=== PATIENT | male | born 1945 | race African-American/Black ===

== ENCOUNTER 2019-10-06 14:17 | Inpatient (IN) | payer MEDICARE, OTHER ==
[~2019-10-06] VITALS: Ht 172.7 cm; Wt 63.1 kg
[2019-10-06] MEDS ORDERED: SODIUM CHLORIDE 0.9% 1,000 ML IVB ONE (17:12)
[2019-10-06 17:32] LABS: Basophils # (auto) 0.1 10 ^3/uL (0-0.2); Basophils % (auto) 0.7 % (0.0-2.0); Eosinophils # (auto) 0.1 10 ^3/uL (0-0.8); Eosinophils % (auto) 1.7 % (0.0-7.0); Hematocrit 41.8 % (41.0-53.0); Lymphocytes # (auto) 0.9 10 ^3/uL (0.4-5.4); Lymphocytes % (auto) 11.1 % (10.0-50.0); Mean Corpuscular Hemoglobin 32.4 pg (28.0-32.0); Mean Corpuscular Hgb Conc. 33.5 g/dL (32.0-36.0); Mean Corpuscular Volume 96.7 fL (80.0-100.0); Monocytes # (auto) 0.6 10 ^3/uL (0-1.3); Monocytes % (auto) 7.6 % (0.0-12.0); Neutrophils # (auto) 6.6 10 ^3/uL (1.6-8.6); Neutrophils % (auto) 78.9 % (37.0-80.0); Nucleated Red Blood Cells % 0.1 %; Platelet Count (auto) 175 10^3/uL (140-450); Red Blood Cells 4.32 10^6/uL (4.5-5.90); Red Cell Distribution Width 14.2 % (11.8-14.3); White Blood Cell 8.3 10^3/uL (4.4-10.8)
[2019-10-06 18:40] LABS: INR 1.07 (0.9-1.15); Partial Thromboplastin Time 24.8 sec (23.64-32.05)
[2019-10-06 19:39] LABS: Calcium 9.1 mg/dL (8.5-10.1); Magnesium 2.1 mg/dL (1.6-2.6); Potassium 3.7 mmol/L (3.5-5.1)
[2019-10-06 19:44] LABS: BUN/Creatinine Ratio 13.4; Bilirubin, Total 0.4 mg/dL (0.2-1.0); Total Protein 8.3 g/dL (6.4-8.2)
[2019-10-06] MEDS ORDERED: MORPHINE SULF INJ 2 MG/ML SYRINGE 1ML IV PRN (21:00)
[2019-10-06] MEDS ORDERED: NITROGLYCERIN 0.4 MG SL TAB SL PRN (21:00)
[2019-10-06] MEDS ORDERED: TEMAZEPAM 15 MG CAP PO PRN (21:00)
[2019-10-06] MEDS ORDERED: ONDANSETRON HCL 4 MG/2 ML VIAL IV PRN (21:00)
[2019-10-06] MEDS ORDERED: ACETAMINOPHEN 325 MG TAB PO PRN (21:00)
[2019-10-06] MEDS ORDERED: ASPirin-EC 81 mg tab PO ONE (21:15)
[2019-10-06] MEDS: ATORVASTATIN 20 MG TAB PO SCH (22:20)
[2019-10-06] MEDS: FAMOTIDINE 20 MG TAB PO SCH (22:21)
[2019-10-06] MEDS: cloNIDine HCL 0.1 MG TAB PO PRN (22:24)
--- NOTE | 2019-10-06 23:17 | NUR ---
Telemetry admit from ER JAYLEN COOK admitted to Telemetry unit. Patient oriented to GIO MANN RN primary RN, unit, room, bed, and unit policies regarding patient care and visiting hours. Patient now on continuous telemetry monitoring, tele box #46 and telemetry reading on arrival to unit is 63. Patient placed on bedside oxygen 2L via nasal cannula, weighed by bedscale and encouraged to call if they need something. All questions and concerns addressed, patient verbalized understanding. Will continue to monitor.
[2019-10-06 23:30] VITALS: BP 157/85
--- NOTE | 2019-10-07 01:20 | NUR ---
Patient's Admission Obtained more patient history from patient's daughter Jeanette, after password verification.
[2019-10-07] MEDS ORDERED: TRAM50TA2 PO (02:50)
[2019-10-07] MEDS ORDERED: AMLO10TA13 PO (02:50)
[2019-10-07] MEDS ORDERED: DIPH25CA6 PO (02:50)
[2019-10-07] MEDS ORDERED: ATEN50TA PO (02:50)
[2019-10-07] MEDS ORDERED: CLON0.1T PO (02:50)
[2019-10-07] MEDS ORDERED: ATOR80TA PO (02:50)
[2019-10-07] MEDS ORDERED: ASPI-543 PO (02:50)
[2019-10-07] MEDS ORDERED: METF-370 PO (02:50)
[2019-10-07] MEDS: cloNIDine HCL 0.1 MG TAB PO PRN (04:25)
[2019-10-07 05:00] VITALS: BP 170/89
[2019-10-07 07:16] LABS: Basophils # (auto) 0 10 ^3/uL (0-0.2); Basophils % (auto) 0.5 % (0.0-2.0); Eosinophils # (auto) 0.2 10 ^3/uL (0-0.8); Eosinophils % (auto) 2.2 % (0.0-7.0); Hematocrit 38.5 % (41.0-53.0); Hemoglobin 12.9 g/dL (13.5-17.5); Lymphocytes % (auto) 10.7 % (10.0-50.0); Mean Corpuscular Hemoglobin 32.4 pg (28.0-32.0); Mean Corpuscular Hgb Conc. 33.6 g/dL (32.0-36.0); Mean Corpuscular Volume 96.5 fL (80.0-100.0); Monocytes # (auto) 0.6 10 ^3/uL (0-1.3); Monocytes % (auto) 6.9 % (0.0-12.0); Neutrophils # (auto) 7.1 10 ^3/uL (1.6-8.6); Neutrophils % (auto) 79.7 % (37.0-80.0); Platelet Count (auto) 169 10^3/uL (140-450); Red Blood Cells 3.99 10^6/uL (4.5-5.90); White Blood Cell 8.9 10^3/uL (4.4-10.8)
[2019-10-07 07:43] LABS: BUN/Creatinine Ratio 10.5; Calcium 8.8 mg/dL (8.5-10.1); Potassium 4.1 mmol/L (3.5-5.1)
[2019-10-07 09:00] VITALS: BP 140/85
[2019-10-07] MEDS: FAMOTIDINE 20 MG TAB PO SCH ×2 (09:13→23:34)
[2019-10-07] MEDS: ENOXAPARIN SOD 40 MG/0.4 ML SYRINGE SC SCH (09:14)
[2019-10-07] MEDS: ASPirin 81 mg TAB PO SCH (09:14)
--- NOTE | 2019-10-07 10:00 | NUR ---
WOUND CARE NOTE: IN TO SEE PATIENT AT THIS TIME PER WOUND CARE CONSULT REQUEST. PATIENT WAS NOTED UPON ADMIT TO HAVE SKIN INTEGRITY ISSUES. WOUND PHOTOS TAKEN UPON ADMIT BY BEDSIDE NURSE FOR REFERENCE. PATIENT ADMITTED TO [facility] WITH DIAGNOSIS OF ELEVATED TROPONIN LEVELS, R/O NSTEMI. CURRENT BRANDON SCORE IS 14. PATIENT HAS HISTORY WITH CVA. HE IS MAX ASSIST FOR HIS ADL'S. ORDERED SPECIALTY AIR MATTRESS. PATIENT TO BE PLACED, PENDING DELIVERY BY DAVID QUIGLEY. PATIENT IS NOTED TO HAVE MULTIPLE PINK COLLAGEN SCARS TO SACRUM, AND LEFT FOOT/ANKLE, AND SCABBED ABRASION TO LEFT DORSAL HAND. ALL LEFT OPEN TO AIR. PATIENT WOULD BENEFIT FROM: FREQUENT TURN SCHEDULE Q 2 HOURS, PRN CONDITION PERMITS WITH PRESSURE REDISTRIBUTION USING PILLOWS/WEDGES, BID/PRN APPLICATION MOISTURE BARRIER CREAM, OPTIFOAM GENTLE SACRAL DRESSING, SPECIALTY AIR MATTRESS, SKIN/WOUND CARE PLAN, CONTINUED MONITORING BY WOUND CARE TEAM. Addendum: 10/07/19 at 1637 by Mayra Kirkland RN Amended: Links added.
--- NOTE | 2019-10-07 11:28 | NUR ---
SWALLOW EVALUATED. PATIENT HAS NO TEETH OR DENTURES. ABLE TO TOLERATE PUREE DIET TEXTURE WITH THIN LIQUIDS WITH NO OVERT SIGNS OR SYMPTOMS OF ASPIRATION. NURSING NOTIFIED.
[2019-10-07 13:00] VITALS: BP 162/67
[2019-10-07] MEDS ORDERED: LISINOPRIL 20 MG TAB PO ONE (13:15)
[2019-10-07] MEDS ORDERED: CLOPIDOGREL BISULFATE 75 MG TAB PO ONE (13:15)
--- NOTE | 2019-10-07 14:43 | NUR ---
Nutrition Assessment Notes Please refer to link for full assessment notes. Est Energy needs: 8235-5336 kcals (23-25 kcal/kgBW) Est Protein needs: 60-66 gms/day (1.0-1.1 gm/kgBW) Will continue to monitor and reassess prn. Addendum: 10/07/19 at [address] Amended: Links added.
[2019-10-07 15:16] LABS: Urine Bacteria NONE SEEN /hpf (None Seen); Urine Blood TRACE /uL (Negative); Urine Specific Gravity 1.011 (1.001-1.035); Urine WBC 1 /hpf (0 - 3)
[2019-10-07 17:00] VITALS: BP 137/102
--- NOTE | 2019-10-07 20:48 | NUR ---
PT TRANSFERRED TO SPECIALTY BED.
[2019-10-07 22:47] LABS: Folate (Folic Acid) 19.84 ng/mL (5.38-24)
[2019-10-07 23:12] VITALS: BP 145/73
[2019-10-07] MEDS: ATORVASTATIN 20 MG TAB PO SCH (23:32)
[2019-10-07] MEDS: METOPROLOL TARTRATE 50 MG TAB PO SCH (23:34)
[2019-10-08 05:14] VITALS: BP 162/83
[2019-10-08] MEDS: cloNIDine HCL 0.1 MG TAB PO PRN ×3 (07:55→20:53)
[2019-10-08 09:00] VITALS: BP 171/97
--- NOTE | 2019-10-08 09:15 | NUR ---
pt seen by Dr. Acevedo, he spoke with daughter Jeanette and updated on the plan of care.
[2019-10-08] MEDS: METOPROLOL TARTRATE 50 MG TAB PO SCH ×2 (09:57→20:52)
[2019-10-08] MEDS: FAMOTIDINE 20 MG TAB PO SCH ×2 (09:57→20:52)
[2019-10-08] MEDS: CLOPIDOGREL BISULFATE 75 MG TAB PO SCH (09:57)
[2019-10-08] MEDS: ASPirin 81 mg TAB PO SCH (09:58)
[2019-10-08] MEDS: LISINOPRIL 20 MG TAB PO SCH (09:58)
[2019-10-08] MEDS: ENOXAPARIN SOD 40 MG/0.4 ML SYRINGE SC SCH (09:59)
[2019-10-08 12:58] VITALS: BP 160/94
[2019-10-08 14:20] VITALS: BP 122/76
--- NOTE | 2019-10-08 16:42 | NUR ---
spoke with Dr. Ryan regarding pending EEG, he said pt can get it as out patient at [facility].
[2019-10-08 17:15] VITALS: BP 162/77
[2019-10-08] MEDS: ATORVASTATIN 20 MG TAB PO SCH (20:50)
[2019-10-08 22:00] VITALS: BP 163/92
[2019-10-09 05:00] VITALS: BP 169/80
--- NOTE | 2019-10-09 07:33 | NUR ---
[facility]CE[facility]. AWAKE AND ALERT. UNDERSTANDS SIMPLE SENTENCES. DENIES PAIN, NO SOB OR S/S OF DISTRESS. BED IN LOCKED AND LOW POSITION. CALL LIGHT AND PHONE WITHIN REACH. WILL CONTINUE TO MONITOR Q1HR AND PRN.
[2019-10-09 09:00] VITALS: BP 135/95
[2019-10-09] MEDS: ASPirin 81 mg TAB PO SCH (09:47)
[2019-10-09] MEDS: LISINOPRIL 20 MG TAB PO SCH (09:49)
[2019-10-09] MEDS: FAMOTIDINE 20 MG TAB PO SCH (09:49)
[2019-10-09] MEDS: METOPROLOL TARTRATE 50 MG TAB PO SCH (09:50)
[2019-10-09] MEDS: CLOPIDOGREL BISULFATE 75 MG TAB PO SCH (09:50)
[2019-10-09] MEDS: ENOXAPARIN SOD 40 MG/0.4 ML SYRINGE SC SCH (09:51)
[2019-10-09 13:00] VITALS: BP 147/90
[2019-10-09 15:45] VITALS: BP 135/95
--- NOTE | 2019-10-09 16:00 | NUR ---
CARPET CLEANING TECHNICIAN WEEKEND Received a page from ANDREINA Yen regarding home health service. Per ANDREINA Yen patient family stated [facility] and [facility] will contact them to continue service for patient.
== END 2019-10-09 17:30 | disposition home health service (06) | DRG 280 ==
LOC: EDBD 14:17 → ER 14:17 → TELE-CENTR 14:18
PROVIDERS: ADMIT Nurse Practitioner; ATTEND Family Medicine
DX: I21.4 Non-ST elevation (NSTEMI) myocardial infarction (principal); G93.41 Metabolic encephalopathy; I69.354 Hemiplegia and hemiparesis following cerebral infarction affecting left non-dominant side; E11.9 Type 2 diabetes mellitus without complications; E78.00 Pure hypercholesterolemia, unspecified; E78.5 Hyperlipidemia, unspecified; G89.29 Other chronic pain; I16.0 Hypertensive urgency; I10 Essential (primary) hypertension; M54.5 Low back pain; S40.022A Contusion of left upper arm, initial encounter; I25.10 Atherosclerotic heart disease of native coronary artery without angina pectoris; F17.200 Nicotine dependence, unspecified, uncomplicated; I25.2 Old myocardial infarction; Z79.02 Long term (current) use of antithrombotics/antiplatelets; Z74.01 Bed confinement status; Z79.82 Long term (current) use of aspirin; Z79.84 Long term (current) use of oral hypoglycemic drugs; Z79.899 Other long term (current) drug therapy; Z82.49 Family history of ischemic heart disease and other diseases of the circulatory system; Z83.3 Family history of diabetes mellitus; Z85.46 Personal history of malignant neoplasm of prostate; X58.XXXA Exposure to other specified factors, initial encounter; Y93.89 Activity, other specified; Y92.89 Other specified places as the place of occurrence of the external cause; Y99.8 Other external cause status
CPT/HCPCS: 36415; 70450; 70551; 71045; 80048; 80053; 81001; 82607; 82746; 83735; 84443; 84484; 85025; 85610; 85730; 87086; 92610; 93005; 93306; 93886; 97163; 97530; A4565; G0378; J2405

== ENCOUNTER 2019-10-24 16:55 | Inpatient (IN) | payer MEDICARE, OTHER ==
[~2019-10-24] VITALS: Ht 170.2 cm; Wt 48.1 kg
[~2019-10-24 16:55] MED LIST: AMLO10TA13 PO; ASPI-404 PO; ATEN50TA PO; ATOR80TA PO; CLON0.1T PO; DIPH25CA6 PO; METF-370 PO; TRAM50TA2 PO
[2019-10-24] MEDS ORDERED: SODIUM CHLORIDE 0.9% 1,000 ML IVB ONE (19:47)
[2019-10-24] MEDS ORDERED: ONDANSETRON HCL 4 MG/2 ML VIAL IV ONE (20:00)
[2019-10-24 21:07] LABS: Basophils # (auto) 0.1 10 ^3/uL (0-0.2); Basophils % (auto) 0.8 % (0.0-2.0); Eosinophils # (auto) 0.2 10 ^3/uL (0-0.8); Eosinophils % (auto) 1.1 % (0.0-7.0); Hematocrit 41.2 % (41.0-53.0); Hemoglobin 12.9 g/dL (13.5-17.5); Lymphocytes # (auto) 2.3 10 ^3/uL (0.4-5.4); Lymphocytes % (auto) 13.5 % (10.0-50.0); Mean Corpuscular Hemoglobin 31.6 pg (28.0-32.0); Mean Corpuscular Hgb Conc. 31.3 g/dL (32.0-36.0); Monocytes # (auto) 1.7 10 ^3/uL (0-1.3); Monocytes % (auto) 10.1 % (0.0-12.0); Neutrophils # (auto) 12.4 10 ^3/uL (1.6-8.6); Neutrophils % (auto) 74.5 % (37.0-80.0); Nucleated Red Blood Cells % 0.2 %; Platelet Count (auto) 287 10^3/uL (140-450); Red Blood Cells 4.08 10^6/uL (4.5-5.90); Red Cell Distribution Width 14.4 % (11.8-14.3); White Blood Cell 16.7 10^3/uL (4.4-10.8)
[2019-10-24 21:26] LABS: Albumin 2.8 g/dL (3.4-5.0); Potassium 5.5 mmol/L (3.5-5.1)
[2019-10-24 21:28] LABS: BUN/Creatinine Ratio 15.1
[2019-10-24 21:33] LABS: Bilirubin, Total 0.5 mg/dL (0.2-1.0); Total Protein 7.7 g/dL (6.4-8.2)
[2019-10-24] MEDS ORDERED: SODIUM CHLORIDE 0.9% 1,000 ML IV SCH (21:36)
[2019-10-24] MEDS ORDERED: NOREPINEPHRINE 8 MG/250ML KIT 250 ML IV ONE (21:44)
[2019-10-24] MEDS ORDERED: ALUM & MAG HYDROX-SIMETH LIQ(MAALOX) 30 ML PO PRN (21:45)
[2019-10-24] MEDS ORDERED: DEXTROSE (50%) 50ML SYRG IV PRN (21:45)
[2019-10-24] MEDS ORDERED: ONDANSETRON HCL 4 MG/2 ML VIAL IV PRN (21:45)
[2019-10-24] MEDS ORDERED: DOCUSATE SOD 100 MG CAP PO PRN (21:45)
[2019-10-24 21:46] LABS: INR 1.21 (0.9-1.15); Partial Thromboplastin Time 27.5 sec (23.64-32.05)
[2019-10-24] MEDS: NOREPINEPHRINE 8 MG/250ML KIT 250 ML IV SCH (22:08)
[2019-10-24] MEDS ORDERED: ETOMIDATE (2MG/ML) 20ML VIAL IV ONE (22:15)
[2019-10-24] MEDS ORDERED: SUCCINYLCHOLINE CHLORIDE 20 MG/ML 10ML VIAL IV ONE (22:15)
[2019-10-24] MEDS ORDERED: SODIUM BICARBONATE 50ML VIAL 100 ML in SOD CHL 0.45% 1,000 ML IV SCH (22:30)
[2019-10-24] MEDS ORDERED: SODIUM BICARBONATE 8.4% INJ 50ML SYRINGE ONE ×2 (22:31→23:27)
[2019-10-24] MEDS ORDERED: PROPOFOL 100 ML IV ONE (22:48)
[2019-10-24] MEDS: PROPOFOL 100 ML IV SCH (23:00)
[2019-10-25] VITALS (22 sets, daily range): BP systolic 88–145; BP diastolic 35–89
[2019-10-25] MEDS: InsuLIN REG 1unit/0.01ml Soln (100units/ml) SC SCH ×6 (02:08→20:13)
[2019-10-25] MEDS: metroNIDAZOLE 500MG/100ML 100 ML IV SCH ×3 (04:05→12:06)
[2019-10-25] MEDS: NOREPINEPHRINE 8 MG/250ML KIT 250 ML IV SCH (04:29)
[2019-10-25] MEDS: ACCU-CHEK COMFORT CURVE STRIP VI SCH ×6 (04:36→20:12)
[2019-10-25] MEDS ORDERED: IPRATROPIUM BROM 0.5 MG/2.5ML INH SOL NEB PRN (05:30)
[2019-10-25] MEDS ORDERED: ALBUTEROL SULF 2.5 MG/0.5ML(0.5%) NEB SOLN NEB PRN (05:30)
[2019-10-25 07:19] LABS: Hematocrit 37.2 % (41.0-53.0); Hemoglobin 11.8 g/dL (13.5-17.5); Mean Corpuscular Hemoglobin 31.8 pg (28.0-32.0); Mean Corpuscular Hgb Conc. 31.6 g/dL (32.0-36.0); Mean Corpuscular Volume 100.4 fL (80.0-100.0); Platelet Count (auto) 221 10^3/uL (140-450); Red Blood Cells 3.71 10^6/uL (4.5-5.90); Red Cell Distribution Width 14.2 % (11.8-14.3); White Blood Cell 13.4 10^3/uL (4.4-10.8)
[2019-10-25 07:33] LABS: Basophils % (manual) 0 (0.0-2.0); Blast Cells 0; Promyelocytes % 0; Reactive Lymphocytes 0
[2019-10-25 07:34] LABS: Calcium 8.7 mg/dL (8.5-10.1)
[2019-10-25 07:38] LABS: BUN/Creatinine Ratio 16.9
[2019-10-25 07:56] LABS: Potassium 5.7 mmol/L (3.5-5.1)
[2019-10-25 08:01] LABS: Band Neutrophils % (manual) 2; Eosinophils % (manual) 1 (0-7); Lymphocytes % (manual) 14 (10.0-50.0); Metamyelocytes % 3; Monocytes % (manual) 5 (0-12); Myelocytes % 1
[2019-10-25] MEDS ORDERED: InsuLIN REG 1unit/0.01ml Soln (100units/ml) IV ONE (08:45)
[2019-10-25] MEDS ORDERED: DEXTROSE (50%) 50ML SYRG IV ONE (08:45)
[2019-10-25] MEDS ORDERED: ALBUTEROL SULF 2.5 MG/0.5ML(0.5%) NEB SOLN NEB ONE (08:45)
[2019-10-25] MEDS ORDERED: SODIUM BICARBONATE 8.4% INJ 50ML SYRINGE IV ONE (08:45)
[2019-10-25] MEDS ORDERED: CALCIUM GLUC 4.65meq/50ml D5AE 50 ML IV ONE (08:45)
[2019-10-25] MEDS ORDERED: SODIUM CHLORIDE 0.9% 500 ML IV ONE (09:00)
[2019-10-25] MEDS ORDERED: ACETAMINOPHEN 650 MG RECT SUPP PR ONE (09:30)
[2019-10-25] MEDS ORDERED: SODIUM ZIRCONIUM CYCL 10 GM PAK PO ONE (09:30)
[2019-10-25] MEDS ORDERED: SODIUM BICARBONATE 50ML VIAL 150 ML in D5W 5% 1,000 ML IV ONE ×2 (09:30→10:15)
[2019-10-25] MEDS ORDERED: FUROSEMIDE 20 MG/2 ML VIAL IV ONE (09:30)
[2019-10-25] MEDS: cefTRIAXone 1GM/50ML D5W 50 ML IV SCH (09:35)
[2019-10-25] MEDS ORDERED: SODIUM BICARBONATE 8.4 % INJ 50ML VIAL IV ONE (10:00)
[2019-10-25 10:34] LABS: Urine Amorphous Crystal FEW /hpf (None Seen); Urine Bacteria FEW /hpf (None Seen); Urine Blood 2+ /uL (Negative); Urine Hyaline Cast MANY /lpf (0 - 2); Urine Mucus FEW (None Seen); Urine Specific Gravity 1.024 (1.001-1.035); Urine WBC 20 /hpf (0 - 3)
[2019-10-25 13:02] LABS: BUN/Creatinine Ratio 16.7; Potassium 4.4 mmol/L (3.5-5.1)
[2019-10-25] MEDS: METOCLOPRAMIDE HCL 5MG/ml INJ 2ml VIAL IV SCH ×2 (14:07→22:52)
[2019-10-25] MEDS: SODIUM ZIRCONIUM CYCL 10 GM PAK PO SCH ×2 (14:07→22:52)
[2019-10-25] MEDS: SODIUM CHLORIDE 0.9% 1,000 ML IV SCH (15:03)
--- NOTE | 2019-10-25 21:45 | NUR ---
RT Transport Note: Patient transported to [facility]ENDING [facility]PER[facility]OR ICU with ANDREINA DE. Patient transported to and from procedure on ventilator with previous ordered settings. Patient on cardiac monitor technician with alarms set and audible, ambu-bag/mask connected to 02 tank. Patient returned to room with no adverse reaction noted. Transport completed without incident.
--- NOTE | 2019-10-25 21:45 | NUR ---
Opening note; Patient brought to lab scientist (ICU Overflow patient) bed 8, patient on IV sedation/ intubated, see IV spread sheet for medications and titrations. Patient brought by [facility] nurse, Vital signs stable at this time, see vital sign documentation for initial vitals, MRSA nasal swab collected and sent. Patient placed on tube bender hand and repositioned in bed, no signs of acute distress noted, continue to monitor.
[2019-10-25] MEDS: PROPOFOL 100 ML IV SCH (22:48)
[2019-10-26] VITALS (106 sets, daily range): BP systolic 73–134; BP diastolic 39–80
--- NOTE | 2019-10-26 | NUR ---
Patient resting comfortably, no acute distress noted, continue to monitor.
[2019-10-26] MEDS: ACCU-CHEK COMFORT CURVE STRIP VI SCH ×5 (00:17→23:51)
[2019-10-26] MEDS: SODIUM CHLORIDE 0.9% 1,000 ML IV SCH ×3 (03:47→16:31)
[2019-10-26] MEDS: InsuLIN REG 1unit/0.01ml Soln (100units/ml) SC SCH ×4 (04:00→18:00)
--- NOTE | 2019-10-26 04:00 | NUR ---
Oral temp of 100.8, Tylenol PO will be given as per PRN order.
[2019-10-26] MEDS: ACETAMINOPHEN 325 MG TAB PO PRN (04:01)
[2019-10-26] MEDS: PROPOFOL 100 ML IV SCH ×2 (04:08→20:26)
[2019-10-26 04:25] LABS: Basophils # (auto) 0 10 ^3/uL (0-0.2); Basophils % (auto) 0.4 % (0.0-2.0); Eosinophils # (auto) 0.1 10 ^3/uL (0-0.8); Eosinophils % (auto) 0.6 % (0.0-7.0); Hemoglobin 9.2 g/dL (13.5-17.5); Lymphocytes # (auto) 0.6 10 ^3/uL (0.4-5.4); Lymphocytes % (auto) 4.8 % (10.0-50.0); Mean Corpuscular Hemoglobin 31.3 pg (28.0-32.0); Mean Corpuscular Hgb Conc. 32.7 g/dL (32.0-36.0); Mean Corpuscular Volume 95.9 fL (80.0-100.0); Monocytes # (auto) 0.9 10 ^3/uL (0-1.3); Monocytes % (auto) 6.8 % (0.0-12.0); Neutrophils # (auto) 11.3 10 ^3/uL (1.6-8.6); Neutrophils % (auto) 87.4 % (37.0-80.0); Nucleated Red Blood Cells % 0.3 %; Platelet Count (auto) 156 10^3/uL (140-450); Red Blood Cells 2.92 10^6/uL (4.5-5.90)
[2019-10-26 04:36] LABS: Potassium 4.3 mmol/L (3.5-5.1)
[2019-10-26 04:52] LABS: Albumin 1.8 g/dL (3.4-5.0); Bilirubin, Total 0.4 mg/dL (0.2-1.0); Calcium 7.6 mg/dL (8.5-10.1); Total Protein 5.1 g/dL (6.4-8.2)
--- NOTE | 2019-10-26 04:58 | NUR ---
Temp re-check: 99.5 oral temp
[2019-10-26] MEDS: METOCLOPRAMIDE HCL 5MG/ml INJ 2ml VIAL IV SCH ×3 (05:39→23:47)
[2019-10-26] MEDS: SODIUM ZIRCONIUM CYCL 10 GM PAK PO SCH (05:39)
--- NOTE | 2019-10-26 06:16 | NUR ---
Rhythm Change; Patient heart rated elevated, 130-140s, EKG performed @ 0616, Velez BAND MACHINE OPERATOR paged to notify and await new orders. Patient BP 96/45, O2 sat 100%.
--- NOTE | 2019-10-26 06:27 | NUR ---
A-FIB W/ RVR; Racquel Velez paged 2nd time stat, EKG performed, HR 130s, BP 96/45, 100% O2 sat, resp 18, awaiting new orders at this time.
--- NOTE | 2019-10-26 06:44 | NUR ---
SHANKAR Velez called back; To give 0.125 Digoxin IV push, if patient does not convert to wait 20 min and repeat, One time order. Order repeated back and confirmed.
[2019-10-26] MEDS ORDERED: DIGOXIN (250MCG/ML) 2 ML AMPULE ONE (06:50)
--- NOTE | 2019-10-26 06:58 | NUR ---
Dose of digoxin given as ordered, temporary conversion of rhythm however, patient went back into A-fib w/ RVR HR 130-140, EKG strip printed and placed in chart, Second dose of digoxin to be repeated per order by SHANKAR Velez.
--- NOTE | 2019-10-26 07:00 | NUR ---
Closing Note; Report given to ANDREINA Anderson, Care endorsed.
--- NOTE | 2019-10-26 07:23 | NUR ---
Respiratory note: RECEIVED PATIENT ON V6 V200 VENT ORALLY INTUBATED WITH AN 8.0 ETT SECURED VIA CLEO AT THE 26CM MARKING AT THE LIP, AND MECHANICALLY VENTILATED WITH THE CHARTED SETTINGS. SPO2 100%, LUNG SOUNDS CLEAR/DIM T/O, NO SECRETIONS WHEN SUCTIONED. SKIN IS WARM/DRY TO THE TOUCH AND IS INTACT NEAR CLEO SITE. PITTING EDEMA NOTED IN BILATERAL UPPER EXTREMITIES. THERE IS A NGT IN THE LEFT NARE AND SECURED TO THE NOSE, A TRIPLE LUMEN CENTRAL LINE IS PLACED IN THE RIGHT IJ. PATIENT IS UNRESPONSIVE TO BOTH VERBAL/TACTILE STIMULI AND IS SEDATED ON A PROPOFOL DRIP. HE IS RESTING COMFORTABLY AND TOLERATING VENT WELL, NO CHANGES MADE. VENT PLUGGED INTO RED OUTLET AND ALL ALARMS ARE SET AND AUDIBLE. WILL CONTINUE TO ASSESS PATIENT WELL VENTILATOR FUNCTION. PRN MED-NEB NOT INDICATED.
--- NOTE | 2019-10-26 07:30 | NUR ---
received pt from noc rn. remains sedated/intubated. vent settings ac/ rate 18, tv 500, foi2 60%, peep5. afib with rvr 130.s. perrla will cont to monitor
--- NOTE | 2019-10-26 07:45 | NUR ---
HR CHANGE FROM 130'S TO 100-1220. REMAINS IN AFIB
[2019-10-26] MEDS ORDERED: DIGOXIN (250MCG/ML) 2 ML AMPULE IV ONE (08:15)
--- NOTE | 2019-10-26 08:30 | NUR ---
SPOKE WITH Dian LAINEZ STRAIGHT PIN MAKING MACHINE OPERATOR FOR ORDERS REGARDING PT RATE/RHYTHM. NEW ORDERS RECEIVED.
[2019-10-26] MEDS: NOREPINEPHRINE 8 MG/250ML KIT 250 ML IV SCH (09:12)
--- NOTE | 2019-10-26 09:30 | NUR ---
FAMILYZ- DAUGHTER HERMAN CALLED REGARDING PTS STATUS. DAUGHTER HAD POA AND ONLY WANTS (NAVDEEP) AND HERSELF, THE DAUGHTER TO BE GIVEN INFORMATION ON PT STATUS.
[2019-10-26] MEDS: cefTRIAXone 1GM/50ML D5W 50 ML IV SCH (10:00)
[2019-10-26] MEDS ORDERED: ENOXAPARIN SOD 60 MG/0.6 ML SYRINGE SC SCH (10:00)
--- NOTE | 2019-10-26 10:45 | NUR ---
Respiratory note: FIO2 DECREASED TO 30%.
--- NOTE | 2019-10-26 10:57 | NUR ---
DR ARAUZ AND DR CARTER AT BEDSIDE. NO NEW ORDERS AT THIS TIME. WILL CONT TO WATCH PT STATUS
[2019-10-26] MEDS ORDERED: DEXTROSE (50%) 50ML SYRG IV PRN (12:15)
--- NOTE | 2019-10-26 12:15 | NUR ---
SHANKAR LAINEZ AT BEDSIDE SHE IS AWARE OF ELEVATED TROP, RECEIVED ORDER TO START MILAGROS AND TITRATE OFF LEVOPHED
[2019-10-26] MEDS: PHENYLEPHRINE IV 250 ML IV SCH ×3 (12:20→23:45)
[2019-10-26] MEDS: Glucerna 1.2 Cal 1Liter BOTTLE GT SCH (14:44)
[2019-10-26] MEDS: ALBUMIN 25% 100 ML IV SCH ×2 (15:00→20:24)
--- NOTE | 2019-10-26 15:30 | NUR ---
SHIFT REPORT GIVEN TO ONCOMING RN
--- NOTE | 2019-10-26 16:00 | NUR ---
WOUND CARE NOTE: IN TO SEE PATIENT AT THIS TIME PER WOUND CARE CONSULT REQUEST. PATIENT ADMITTED TO [facility] WITH DIAGNOSIS OF ILEUS, SPASTIC HEMIPLEGIA. PATIENT INTUBATED, SEDATED, CURRENT BRANDON SCORE ASSESSED AT 10. PATIENT NOTED UPON ADMIT TO HAVE WOUND TO RIGHT HIP. WOUND PHOTO TAKEN AT THAT TIME BY BEDSIDE NURSE FOR REFERENCE. PATIENT ALSO HAS MULTIPLE SCARS/SCABS/ECCHYMOSIS TO VARIOUS AREAS, WOUND PHOTOS TAKEN AT THIS TIME FOR REFERENCE OF THESE AREAS. PATIENT RESTING ON SPECIALTY AIR MATTRESS. PATIENT NOTED TO HAVE UNSTAGEABLE PRESSURE INJURY TO THE RIGHT HIP. WOUND IS COVERED WITH LIGHT RED SCAR AND SOFT BROWN ESCHAR. WOUND DOES HAVE LIGHT SEROUS DRAINAGE. APPLIED THERAHONEY GAUZE. COVERED WITH OPTIFOAM GENTLE DRESSING. MEDIAL SACRUM IS COVERED WITH PINK COLLAGEN SCAR WITH RAISED HARD SCAR AT COCCYX. COVERED WITH OPTIFOAM GENTLE SACRAL DRESSING. LEFT DORSAL FOOT HAS INTACT PINK SCAR, LEFT OPEN TO AIR. RIGHT FOREARM HAS THREE SCABBED ABRASIONS NOTED. NO OPEN OR DRAINING AREAS NOTED. LEFT OPEN TO AIR. LEFT ARM HAS MULTIPLE INTACT ECCHYMOSIS, LEFT OPEN TO AIR. NO OTHER SKIN INTEGRITY ISSUES SEEN. RECOMMEND: FREQUENT TURN SCHEDULE Q 2HOURS, PRN CONDITION PERMITS, WITH PRESSURE REDISTRIBUTION USING PILLOWS/WEDGES, BID/PRN APPLICATION WITH MOISTURE BARRIER CREAM, OPTIFOAM GENTLE SACRAL DRESSING PREVENTATIVE, EOD/PRN DRESSING CHANGE TO RIGHT HIP WOUND, SPECIALTY AIR MATTRESS, DIETARY CONSULT, SKIN/WOUND CARE PLAN, CONTINUED MONITORING BY WOUND CARE TEAM. Addendum: 10/26/19 at 6824 by Mayra Kirkland RN Amended: Links added.
--- NOTE | 2019-10-26 17:00 | NUR ---
IV removal RT.AC,LT.AC IV DC'd with sterile technique, catheter fully intact. Pressure dressing applied to site. Patient tolerated procedure well.
--- NOTE | 2019-10-26 17:00 | NUR ---
Special mattress/ Patient bathe/linen change Patient given complete bath. Skin integrity assessed for any changes. Linens changed. Patient transferred to [facility]
[2019-10-26] MEDS: ACETYLCYSTEINE 10 %(100MG/ML) SOL 4ML NEB SCH (18:46)
[2019-10-26] MEDS: IPRATROPIUM BROM 0.5 MG/2.5ML INH SOL NEB SCH (18:46)
[2019-10-26] MEDS: ALBUTEROL SULF 2.5 MG/0.5ML(0.5%) NEB SOLN NEB SCH (18:46)
--- NOTE | 2019-10-26 21:00 | NUR ---
SEDATION VACATION HELD PATIENT WAS RESTLESS SO DIPRIVAN WAS INCREASED AND NOW PATIENT IS BREATHING IN HIGH 20'S.
[2019-10-27] VITALS (89 sets, daily range): BP systolic 74–147; BP diastolic 41–80
[2019-10-27] MEDS: ALBUTEROL SULF 2.5 MG/0.5ML(0.5%) NEB SOLN NEB SCH ×3 (00:21→12:30)
[2019-10-27] MEDS: ACETYLCYSTEINE 10 %(100MG/ML) SOL 4ML NEB SCH ×4 (00:21→18:57)
[2019-10-27] MEDS: IPRATROPIUM BROM 0.5 MG/2.5ML INH SOL NEB SCH ×4 (00:21→18:57)
[2019-10-27] MEDS: PROPOFOL 100 ML IV SCH ×3 (02:02→22:28)
[2019-10-27] MEDS: SODIUM CHLORIDE 0.9% 1,000 ML IV SCH (03:18)
[2019-10-27] MEDS: PHENYLEPHRINE IV 250 ML IV SCH ×2 (03:37→17:40)
[2019-10-27] MEDS: ALBUMIN 25% 100 ML IV SCH (05:09)
[2019-10-27 06:08] LABS: Basophils # (auto) 0 10 ^3/uL (0-0.2); Basophils % (auto) 0.4 % (0.0-2.0); Eosinophils # (auto) 0.5 10 ^3/uL (0-0.8); Hematocrit 23.9 % (41.0-53.0); Lymphocytes # (auto) 0.7 10 ^3/uL (0.4-5.4); Platelet Count (auto) 137 10^3/uL (140-450)
[2019-10-27 06:11] LABS: Eosinophils % (auto) 3.8 % (0.0-7.0); Hemoglobin 7.9 g/dL (13.5-17.5); Lymphocytes % (auto) 5.7 % (10.0-50.0); Mean Corpuscular Hgb Conc. 32.9 g/dL (32.0-36.0); Mean Corpuscular Volume 97.3 fL (80.0-100.0); Monocytes # (auto) 0.7 10 ^3/uL (0-1.3); Monocytes % (auto) 5.4 % (0.0-12.0); Neutrophils # (auto) 10.6 10 ^3/uL (1.6-8.6); Neutrophils % (auto) 84.7 % (37.0-80.0); Nucleated Red Blood Cells % 0.4 %; Red Blood Cells 2.46 10^6/uL (4.5-5.90); White Blood Cell 12.5 10^3/uL (4.4-10.8)
[2019-10-27] MEDS: ACCU-CHEK COMFORT CURVE STRIP VI SCH ×3 (06:21→17:58)
[2019-10-27] MEDS: InsuLIN REG 1unit/0.01ml Soln (100units/ml) SC SCH ×4 (06:22→18:12)
[2019-10-27] MEDS: METOCLOPRAMIDE HCL 5MG/ml INJ 2ml VIAL IV SCH ×3 (06:23→22:28)
[2019-10-27 06:29] LABS: Calcium 7.6 mg/dL (8.5-10.1); Potassium 3.7 mmol/L (3.5-5.1)
[2019-10-27 06:31] LABS: BUN/Creatinine Ratio 19.4
[2019-10-27] MEDS: cefTRIAXone 1GM/50ML D5W 50 ML IV SCH (09:50)
[2019-10-27] MEDS ORDERED: SODIUM CHLORIDE 0.9% 1,000 ML IV SCH (10:00)
[2019-10-27] MEDS: ENOXAPARIN SOD 60 MG/0.6 ML SYRINGE SC SCH (10:00)
--- NOTE | 2019-10-27 10:00 | NUR ---
LOVENOX GIVEN THEN DR. ARAUZ CALLED TO DC IT. UPDATED ON PT CONDITION. NG FEED AND DIPRIVAN STOPPED TO PREP FOR CPAP AND POSS EXTUBATION. .
--- NOTE | 2019-10-27 11:00 | NUR ---
WAKING UP OPENED EYES AND LOOKED AT ME WHEN NAME CALLED.
[2019-10-27] MEDS: DIGOXIN 0.125 MG TAB PO SCH (11:44)
--- NOTE | 2019-10-27 11:54 | NUR ---
PT IS AWAKE, FOLLOWING COMMAND USING HEAD AND HAND GESTURES TO COMMUNICATE DR. ARAUZ NOTIFIED, CPAP ORDERS REC'D
--- NOTE | 2019-10-27 12:08 | NUR ---
INITIATED CPAP TRIAL Pt awake and following simple commands. Initiated CPAP trial as ordered. HR 135, RR 37, SPO2 100%. Notified RN of changes. ABG and weaning parameters to follow in one hour. Will continue to monitor.
--- NOTE | 2019-10-27 13:34 | NUR ---
CALLED DR ARAUZ TO REPORT CPAP RESULTS, ABG AND WEANING PARAMETERS. SAID SHE WILL COME TO SEE PATIENT. PT STILL TOLERATING CPAP, NO S/S OF DISTRESS. WILL CONTINUE TO MONITOR.
--- NOTE | 2019-10-27 13:40 | NUR ---
Dr. Chavarria at bedside to see patient. Per MD, pt not ready to be extubated. Placed pt back on AC mode previous settings. RN at bedside, aware of changes.
[2019-10-27] MEDS ORDERED: FUROSEMIDE 40 MG/4 ML VIAL IV ONE (13:45)
[2019-10-27] MEDS ORDERED: FUROSEMIDE 40 MG/4 ML VIAL ONE (13:46)
--- NOTE | 2019-10-27 13:51 | NUR ---
Nutrition Assessment Notes Please refer to link for full assessment notes. Est Energy needs: 2628-8663 kcals (30-35 kcal/kgBW) d/t pt with Stg 4 CKD Est Protein needs: 47-53 gms/day (0.8-1.9 gm/kgBW) d/t pt with DM and Stg 4 CKD Will continue to monitor and reassess prn. Addendum: 10/27/19 at [address] Amended: Links added.
[2019-10-27] MEDS: MEROPENEM 500MG IVPB 50 ML IV SCH (15:45)
[2019-10-27] MEDS: LEVALBUTEROL HCL 1.25 MG/3 ML NEB NEB SCH (18:57)
--- NOTE | 2019-10-27 21:00 | NUR ---
Patient bathe/linen change Patient given complete bath with chlorhexidine. Skin integrity assessed for any changes. Linens changed. Patient repositioned for comfort. Addendum: 10/28/19 at 0718 by Daisy Adame RN RT.HIP WOUND DRESSING CHANGED.
[2019-10-27] MEDS: Glucerna 1.2 Cal 1Liter BOTTLE GT SCH (22:29)
[2019-10-27] MEDS: MORPHINE SULF INJ 2 MG/ML SYRINGE 1ML IV PRN (22:31)
--- NOTE | 2019-10-27 23:25 | NUR ---
HOSPITALIST CALLED BACK DIGGS PROTOZOOLOGIST CALLED BACK. NOTIFIED URINE OUTPUT 1300ML FOR 5 HRS, HEART RATE FREQUENTLY INCREASE TO 130'S TO 140'S, AND OCCASIONAL PVCS. PROTOZOOLOGIST ORDERED ALBUMIN 250 ML IV, BMP AND MAG. STAT.
[2019-10-27] MEDS ORDERED: ALBUMIN 5% 250 ML IV ONE ×2 (23:30→23:32)
[2019-10-28] VITALS (107 sets, daily range): BP systolic 86–176; BP diastolic 50–93
[2019-10-28] MEDS: InsuLIN REG 1unit/0.01ml Soln (100units/ml) SC SCH ×4 (00:03→18:30)
[2019-10-28 00:22] LABS: BUN/Creatinine Ratio 19.7; Calcium 8.4 mg/dL (8.5-10.1); Magnesium 1.8 mg/dL (1.6-2.6); Potassium 3.3 mmol/L (3.5-5.1)
--- NOTE | 2019-10-28 00:40 | NUR ---
HOSPITALIST CALLED BACK DONTAE FRUIT FARMER CALLED BACK.NOTIFIED BMP RESULT AND MAG.LEVEL AND ORDERS RECEIVED.
[2019-10-28] MEDS ORDERED: POTASSIUM CHL 20MEQ/100ML 100 ML IV ONE (00:45)
[2019-10-28] MEDS: MAGNESIUM SULFATE 1GM/100ML 100 ML IV SCH ×2 (00:56→02:05)
[2019-10-28] MEDS: PHENYLEPHRINE IV 250 ML IV SCH ×3 (04:55→21:35)
[2019-10-28] MEDS: MEROPENEM 500MG IVPB 50 ML IV SCH ×2 (04:56→15:30)
[2019-10-28] MEDS: ACCU-CHEK COMFORT CURVE STRIP VI SCH ×5 (06:10→23:58)
[2019-10-28] MEDS: METOCLOPRAMIDE HCL 5MG/ml INJ 2ml VIAL IV SCH ×3 (06:10→22:18)
[2019-10-28] MEDS: LEVALBUTEROL HCL 1.25 MG/3 ML NEB NEB SCH ×3 (06:39→19:30)
[2019-10-28] MEDS: IPRATROPIUM BROM 0.5 MG/2.5ML INH SOL NEB SCH ×4 (06:39→19:31)
[2019-10-28] MEDS: ACETYLCYSTEINE 10 %(100MG/ML) SOL 4ML NEB SCH ×4 (06:40→19:31)
--- NOTE | 2019-10-28 07:45 | NUR ---
ASSESSMENT COMPLETED - SEE ASSESSMENT FLOW SHEET.
[2019-10-28 08:12] LABS: Basophils # (auto) 0 10 ^3/uL (0-0.2); Basophils % (auto) 0.3 % (0.0-2.0); Eosinophils # (auto) 0.4 10 ^3/uL (0-0.8); Eosinophils % (auto) 3.5 % (0.0-7.0); Hematocrit 25.8 % (41.0-53.0); Hemoglobin 8.5 g/dL (13.5-17.5); Lymphocytes # (auto) 0.6 10 ^3/uL (0.4-5.4); Lymphocytes % (auto) 4.9 % (10.0-50.0); Mean Corpuscular Hemoglobin 31.9 pg (28.0-32.0); Mean Corpuscular Hgb Conc. 32.7 g/dL (32.0-36.0); Mean Corpuscular Volume 97.4 fL (80.0-100.0); Monocytes # (auto) 0.8 10 ^3/uL (0-1.3); Monocytes % (auto) 6.8 % (0.0-12.0); Neutrophils # (auto) 10.6 10 ^3/uL (1.6-8.6); Neutrophils % (auto) 84.5 % (37.0-80.0); Nucleated Red Blood Cells % 0.1 %; Platelet Count (auto) 137 10^3/uL (140-450); Red Blood Cells 2.65 10^6/uL (4.5-5.90); White Blood Cell 12.5 10^3/uL (4.4-10.8)
[2019-10-28 08:18] LABS: Potassium 3.4 mmol/L (3.5-5.1)
[2019-10-28 08:23] LABS: Magnesium 2.4 mg/dL (1.6-2.6)
--- NOTE | 2019-10-28 09:00 | NUR ---
SEDATION DECREASED - SEE IV SPREAD SHEET. PLAN FOR CPAP TODAY. Addendum: 10/28/19 at 1302 by Anaid Zheng RN Amended: Links added.
--- NOTE | 2019-10-28 09:15 | NUR ---
HR 130-140 AF/RVR SUSTAINED- TAYO CHAPARRO NOTIFIED - ORDERS RECEIVED.
[2019-10-28 09:19] LABS: BUN/Creatinine Ratio 19.8; Calcium 8.4 mg/dL (8.5-10.1); Potassium 3.4 mmol/L (3.5-5.1)
[2019-10-28] MEDS ORDERED: AMIODARONE 450mg/250ml AE 250 ML IV SCH (09:28)
[2019-10-28] MEDS ORDERED: AMIODARONE HCL 150 MG in D5W 5% 100 ML IV ONE (09:30)
[2019-10-28] MEDS ORDERED: POTASSIUM CHLORIDE 60 MEQ, LIDOCAINE 1% (LOCAL ANESTH.) 6 ML in SODIUM CHL 0.9% 500 ML IV ONE (09:30)
[2019-10-28] MEDS ORDERED: FUROSEMIDE 40 MG/4 ML VIAL IV SCH (10:00)
[2019-10-28] MEDS: PROPOFOL 100 ML IV SCH (10:23)
[2019-10-28] MEDS: ENOXAPARIN SOD 60 MG/0.6 ML SYRINGE SC SCH (11:00)
--- NOTE | 2019-10-28 11:00 | NUR ---
DR ARAUZ VISITS AND EXAMINES PATIENT- ORDERS RECEIVED.
--- NOTE | 2019-10-28 11:10 | NUR ---
DR CARTER VISITS AND EXAMINES PATIENT - NO ORDERS RECEIVED.
--- NOTE | 2019-10-28 11:12 | NUR ---
PATIENT HAD 10 BEAT RUN VT - BP 116/73 - WILL CONTINUE TO MONITOR.
[2019-10-28 11:50] LABS: BUN/Creatinine Ratio 20.9; Calcium 8.5 mg/dL (8.5-10.1); Potassium 3.3 mmol/L (3.5-5.1)
--- NOTE | 2019-10-28 11:58 | NUR ---
MED NEB TX STOPPED DUE TO ADVERSE RX TO HR INCREASED FROM 87'S TO 133. WILL CONTINUE TO MONITOR PT.
[2019-10-28] MEDS ORDERED: POTASSIUM PHOSPHATE 44 MEQ in D5W 5% 250 ML IV ONE ×2 (12:30→14:15)
[2019-10-28] MEDS ORDERED: SODIUM PHOSPHATES 40 MEQ in D5W 5% 250 ML IV ONE (14:30)
--- NOTE | 2019-10-28 15:10 | NUR ---
PT WAS PLACED ON CPAP TRIAL FOR 2 MINS AND HR INCREASED 140'S, RR 37 AND PT WAS LABOR BREATHING. ANDREINA FARIA AT BEDSIDE.
[2019-10-28] MEDS: AMIODARONE 450mg/250ml AE 250 ML IV SCH (15:28)
--- NOTE | 2019-10-28 17:30 | NUR ---
CANDLEMAKING LABORER PHONED PATIENT'S AND DAUGHTER - UPDATED ON CURRENT PATIENT CONDITION - VERBALIZED UNDERSTANDING. MED REC AND ADMISSION COMPLETED VIA PHONE.
[2019-10-28] MEDS ORDERED: CLON0.1T PO (17:38)
[2019-10-28] MEDS ORDERED: OMEP20TA PO (17:41)
[2019-10-28] MEDS ORDERED: PROC10TA2 PO (17:44)
[2019-10-28] MEDS ORDERED: CLOP75TA41 PO (17:44)
--- NOTE | 2019-10-28 19:00 | NUR ---
REPORT GIVEN TO EDGAR HDZ
--- NOTE | 2019-10-28 19:45 | NUR ---
OPENING NOTE: INTUBATED AND OFF SEDATION. OPENS EYES, TRACKS, FOLLOWS COMMANDS. A FLUTTER 100-130s. SBP 140+. 8.0 ETT, 26 AT THE LIP. EVEN AND UNLABORED BREATHING. LS CTA, DIMINISHED TO BASES. SpO2>95%. ABD SOFT. HYPOACTIVE BS. +FLATUS. LBM 10/27. MARIN PATENT AND INTACT, DRAINING LIGHT EDGAR URINE. SEE SKIN AND WOUND FLOWSHEET FOR ASSESSMENT. RIGHT IJ TLC CDI, AND PATENT WITH BLOOD RETURN. REINFORCED POC. MAINTAINED PATIENT SAFETY: BED LOCKED AND IN THE LOWEST POSITION. FREQUENT VISUAL CHECKS.
--- NOTE | 2019-10-28 19:45 | NUR ---
TURNED PROPOFOL GTT BACK ON: PATIENT WIDE AWAKE, FOLLOWING COMMANDS, TEARFUL, BP ELEVATED.
[2019-10-28] MEDS: ACETAMINOPHEN 325 MG TAB PO PRN (19:51)
--- NOTE | 2019-10-28 19:51 | NUR ---
TEMP 101.2F TEMPORAL: ICE PACKS APPLIED. TYLENOL PRN GIVEN
--- NOTE | 2019-10-28 20:30 | NUR ---
TEMP 99.9F TEMPORAL
[2019-10-29] VITALS (92 sets, daily range): BP systolic 83–205; BP diastolic 29–124
[2019-10-29] MEDS: InsuLIN REG 1unit/0.01ml Soln (100units/ml) SC SCH ×5 (00:04→23:55)
[2019-10-29] MEDS: MORPHINE SULF INJ 2 MG/ML SYRINGE 1ML IV PRN ×3 (00:12→19:27)
[2019-10-29] MEDS: LEVALBUTEROL HCL 1.25 MG/3 ML NEB NEB SCH ×4 (00:28→19:03)
[2019-10-29] MEDS: ACETYLCYSTEINE 10 %(100MG/ML) SOL 4ML NEB SCH ×4 (00:29→19:03)
[2019-10-29] MEDS: IPRATROPIUM BROM 0.5 MG/2.5ML INH SOL NEB SCH ×4 (00:29→19:03)
[2019-10-29] MEDS: PROPOFOL 100 ML IV SCH (02:56)
[2019-10-29] MEDS: MEROPENEM 500MG IVPB 50 ML IV SCH (03:58)
[2019-10-29 04:42] LABS: Basophils # (auto) 0.1 10 ^3/uL (0-0.2); Basophils % (auto) 0.6 % (0.0-2.0); Eosinophils # (auto) 0.6 10 ^3/uL (0-0.8); Eosinophils % (auto) 5.9 % (0.0-7.0); Hematocrit 25.7 % (41.0-53.0); Hemoglobin 8.5 g/dL (13.5-17.5); Lymphocytes # (auto) 0.7 10 ^3/uL (0.4-5.4); Lymphocytes % (auto) 6.2 % (10.0-50.0); Mean Corpuscular Hemoglobin 32.3 pg (28.0-32.0); Mean Corpuscular Hgb Conc. 33.2 g/dL (32.0-36.0); Mean Corpuscular Volume 97.1 fL (80.0-100.0); Monocytes # (auto) 0.9 10 ^3/uL (0-1.3); Monocytes % (auto) 8.4 % (0.0-12.0); Neutrophils # (auto) 8.4 10 ^3/uL (1.6-8.6); Neutrophils % (auto) 78.9 % (37.0-80.0); Platelet Count (auto) 128 10^3/uL (140-450); Red Blood Cells 2.64 10^6/uL (4.5-5.90); Red Cell Distribution Width 14.2 % (11.8-14.3); White Blood Cell 10.7 10^3/uL (4.4-10.8)
[2019-10-29 05:00] LABS: Albumin 2.5 g/dL (3.4-5.0); Potassium 3.9 mmol/L (3.5-5.1)
[2019-10-29 05:04] LABS: Bilirubin, Total 0.4 mg/dL (0.2-1.0); Phosphorus 4.2 mg/dL (2.5-4.90); Total Protein 5.8 g/dL (6.4-8.2)
--- NOTE | 2019-10-29 05:30 | NUR ---
BED BATH WITH CHG WIPES, ZAFAR CARE, MARIN CARE, ORAL CARE, AND PARTIAL LINEN CHANGE COMPLETED
[2019-10-29] MEDS: PHENYLEPHRINE IV 250 ML IV SCH ×3 (05:55→22:35)
[2019-10-29] MEDS: METOCLOPRAMIDE HCL 5MG/ml INJ 2ml VIAL IV SCH ×3 (06:24→21:47)
[2019-10-29] MEDS: AMIODARONE 450mg/250ml AE 250 ML IV SCH ×2 (06:24→21:28)
[2019-10-29] MEDS: ACCU-CHEK COMFORT CURVE STRIP VI SCH ×3 (06:24→17:46)
--- NOTE | 2019-10-29 06:42 | NUR ---
BLOOD PRESSURE IN THE 180s AND NOTED WITH FINE MUSCLE TREMOR - MORPHINE PRN GIVEN
--- NOTE | 2019-10-29 07:18 | NUR ---
BLOOD PRESSURE > 200 - NOTIFIED SHANKAR DIGGS: ORDERS FOR 15 MG HYDRALAZINE IVP X1. ORDERS READBACK AND VERIFIED
[2019-10-29] MEDS ORDERED: hydrALAZINE HCL 20 MG/ML VL IV ONE (07:30)
--- NOTE | 2019-10-29 07:30 | NUR ---
REPORT AND CARE ENDORSED TO ANDREINA ERAZO
[2019-10-29] MEDS ORDERED: FUROSEMIDE 40 MG/4 ML VIAL IV ONE ×2 (09:15→18:00)
[2019-10-29] MEDS ORDERED: methylPREDNISolone SOD SUCC 125 MG/2 ML VL IV ONE (09:30)
[2019-10-29] MEDS ORDERED: ENOXAPARIN SOD 60 MG/0.6 ML SYRINGE SC ONE (09:39)
[2019-10-29] MEDS ORDERED: AMIODARONE KIT 500 ML IV ONE (09:41)
--- NOTE | 2019-10-29 09:45 | NUR ---
CONTENT CURATOR FATOU IN. UPDATED ON BP. ORDERS REC'D.
[2019-10-29] MEDS: DIGOXIN 0.125 MG TAB PO SCH (09:56)
[2019-10-29] MEDS: ENOXAPARIN SOD 60 MG/0.6 ML SYRINGE SC SCH (09:56)
[2019-10-29] MEDS ORDERED: METOPROLOL TARTRATE 25 MG TAB PO ONE (10:15)
--- NOTE | 2019-10-29 10:15 | NUR ---
DR. ARAUZ CALLED. WANTS TO ATTEMPT CPAP TODAY. JOSEPH MORAN'D
--- NOTE | 2019-10-29 10:45 | NUR ---
PT NOT TOLERATING SEDATION VACATION, WITH INCREASED RR 40, INCREASED HR 121 WITH A-FIB, AND INCREASED BP 189/105. CPAP TRIAL NOT INITIATED AT THIS TIME DUE TO DISTRESS. ALARMS VERIFIED AND AUDIBLE. DR CARTER AT BEDSIDE AND AWARE. ANDREINA ERAZO NOTIFIED DR ARAUZ, WAITING TO TRY PRECEDEX. WILL CONTINUE TO MONITOR.
--- NOTE | 2019-10-29 11:02 | NUR ---
Nutrition Followup Note Wt 53.6kg Pt intubated and sedated with propofol running at 9.525 ml/hr which provides 251 kcal from lipids. pt also with Glucerna 1.2 ordered at 40ml/hr. Per RN note rate running at 40 ml with a total of 450 ml provided 10/28 so far. Will continue to monitor TF rate and tolerance. Est Energy needs: 8257-0675 kcals (30-35 kcal/kgBW) d/t pt with Stg 4 CKD Est Protein needs: 47-53 gms/day (0.8-1.9 gm/kgBW) d/t pt with DM and Stg 4 CKD Will continue to monitor and reassess prn Labs: BUN 36H, Creat 1.80H, Ca 8.0L, Alb 2.5L BM: pt with 1 BM 10/28 per Rn note Skin: BS 10 high risk, full details in transitions rn care coordinator note PES: 1) Increased nutrient needs r/t pt with no nutrition support aeb pt TF suspended pending CPAP trial 2) Altered nutrition related lab values r/t current/chronic medical condition aeb elev RFTs, low GFR, severe hypoalbuminemia Comments: Will continue to monitor PO status, skin status, pertinent labs and weight trends. Will f/u in 2-3 days. 1) Continue to carefully monitor pt NPO status 2) If pt remains NPO for the next 48 hours, consider EN nutrition support Glucerna 1.2 @ 70ml/hr goal rate 3) Gradually advance pt to oral CCHO 60g diet when medically feasible and as tolerated 4) Continue current plan of care Expected Outcomes/Goals: Pt to advance to an oral diet Pt labs to improve
[2019-10-29] MEDS ORDERED: DexMEDEtomidine 400 MCG in D5W 5% 96 ML IV SCH (11:15)
[2019-10-29] MEDS ORDERED: cloNIDine HCL 0.1 MG TAB PO ONE (12:45)
[2019-10-29] MEDS ORDERED: cloNIDine HCL 0.1 MG TAB ONE (12:45)
--- NOTE | 2019-10-29 12:45 | NUR ---
INITIATED CPAP TRIAL Pt awake and able to follow simple commands. Initiated CPAP trial as ordered per Dr. Chavarria. Pt tolerating well, no s/s of distress. Alarms set and audible. ABG and weaning parameters to follow in one hour. Notified RN of changes.
[2019-10-29] MEDS: NITROGLYCERIN 50MG/250ML 250 ML IV SCH (13:30)
[2019-10-29] MEDS ORDERED: NITROGLYCERIN 50MG/250ML 250 ML IV ONE (13:33)
--- NOTE | 2019-10-29 15:28 | NUR ---
Called Dr. Chavarria with updates on CPAP trial, ABG, and weaning parameters. Orders received to extubate, orders read back and verified. Notified RN. Will carry out.
--- NOTE | 2019-10-29 15:30 | NUR ---
OPENING NOTE: INTUBATED AND OFF SEDATION. SLEEPY BUT OPENS EYES, TRACKS, FOLLOWS COMMANDS. NSR AND AFIB 60-70s. SBP 140+. 8.0 ETT, 26 AT THE LIP. EVEN AND UNLABORED BREATHING. LS CTA, DIMINISHED TO BASES. SpO2>95%. ABD SOFT. HYPOACTIVE BS. +FLATUS. LBM 7/23. MARIN PATENT AND INTACT, DRAINING LIGHT EDGAR URINE. SEE SKIN AND WOUND FLOWSHEET FOR ASSESSMENT. RIGHT IJ TLC CDI, AND PATENT WITH BLOOD RETURN. REINFORCED POC. MAINTAINED PATIENT SAFETY: BED LOCKED AND IN THE LOWEST POSITION. FREQUENT VISUAL CHECKS.
[2019-10-29] MEDS: MEROPENEM 1GM IVPB 100 ML IV SCH (15:38)
--- NOTE | 2019-10-29 15:40 | NUR ---
EXTUBATED EXTUBATED PT WITH RN EDGAR AT BEDSIDE. EXTUBATED TO COOL AEROSOL MASK FIO2 30%. HR 77, RR 23, SPO2 100%. MILD STRIDOR NOTED. NO S/S OF DISTRESS.
--- NOTE | 2019-10-29 15:41 | NUR ---
EXTUBATED BY RT PER ORDERS- PLACED ON COOL AEROSOL MASK
--- NOTE | 2019-10-29 15:49 | NUR ---
LEFT NGT IN PLACE: HISTORY OF CVA, AND SLEEPY. WILL RE-EVALUATED NECESSITY
--- NOTE | 2019-10-29 15:52 | NUR ---
MILD STRIDOR NOTED - NARESH ARAUZ
--- NOTE | 2019-10-29 15:58 | NUR ---
SPOKE TO DR. ARAUZ: NOTIFIED OF MILD STRIDOR. ORDERS FOR RACEMIC EPI NEB X1 DOSE. ORDERS READBACK AND VERIFIED
[2019-10-29] MEDS ORDERED: EPINEPHrine HCL 0.5 ML NEB NEB ONE ×2 (16:00→17:00)
--- NOTE | 2019-10-29 16:15 | NUR ---
ADMINISTERED RACEMIC EPI FOR MILD STRIDOR. HR 72, RR 21, SPO2 100%. PT TOLERATED TX, STILL NOTABLE STRIDOR. WILL NOTIFY DR ARAUZ.
--- NOTE | 2019-10-29 16:45 | NUR ---
STARTED TRIDIL GTT - BLOOD PRESSURE 170/80
--- NOTE | 2019-10-29 16:53 | NUR ---
CALLED DR. ARAUZ TO UPDATE ON PT STATUS, ORDERS RECEIVED.
[2019-10-29] MEDS ORDERED: DexAMETHasone SOD PHOS 10MG/1ML VIAL INJ ONE (17:00)
[2019-10-29] MEDS ORDERED: DexAMETHasone SOD PHOS 10MG/1ML VIAL INJ IV ONE (17:00)
--- NOTE | 2019-10-29 17:00 | NUR ---
ADMINISTERED ONE MORE RACEMIC EPI BREATHING TX ORDERED. HR 77, RR 24, SPO2 100%. WILL ENDORSE CARE TO NOC SHIFT RT.
[2019-10-29] MEDS: HYDROcodone-ACET 5/325MG TAB PO PRN ×2 (17:15→22:21)
--- NOTE | 2019-10-29 17:21 | NUR ---
COMPLAINING OF LEFT KNEE PAIN, GRUNTING, GRIMACING - NORCO PRN GIVEN, AND WARM PACK APPLIED
--- NOTE | 2019-10-29 17:48 | NUR ---
DR. ARAUZ CALLED TO CHECK IN ON PATIENT: ORDERS TO PLACE PATIENT ON BIPAP AND GIVE PATIENT 40 MG LASIX X1 DOSE. ORDERS READBACK AND VERIFIED
[2019-10-29] MEDS ORDERED: FUROSEMIDE 20 MG/2 ML VIAL ONE (17:50)
[2019-10-29] MEDS ORDERED: cloNIDine HCL 0.1 MG TAB PO PRN (18:00)
[2019-10-29] MEDS: cloNIDine HCL 0.1 MG TAB PO PRN (18:48)
--- NOTE | 2019-10-29 19:30 | NUR ---
PATIENT STILL COMPLAINING OF PAIN TO LEFT KNEE DESPITE NORCO, AND WARM PACK - MORPHINE PRN GIVEN, AND ZOFRAN PRN GIVEN PROPHYLACTICALLY
--- NOTE | 2019-10-29 20:00 | NUR ---
APPEARS MUCH MORE COMFORTABLE THAN PREVIOUSLY
--- NOTE | 2019-10-29 21:10 | NUR ---
SPOKE WITH PATIENT'S DAUGHTER: AFTER PASSWORD VERIFIED, UPDATED ON PATIENT'S STATUS. ANSWERED ALL QUESTIONS ABLE.
[2019-10-29] MEDS: METOPROLOL TARTRATE 25 MG TAB PO SCH (21:47)
--- NOTE | 2019-10-29 22:06 | NUR ---
NEURO STATUS: PATIENT RESTING IN BED. GRUNTS. SPEAKS ONLY A COUPLE OF WORDS AT A TIME. MOVES LEFT UPPER EXTREMITY MORE THAN RIGHT. COMPLAINS OF HEAD ACHE, BACK ACHE AND KNEE PAIN. REPOSITIONED FOR COMFORT.
--- NOTE | 2019-10-29 22:07 | NUR ---
KNEE PAIN: APPLIED ICE PACK TO LEFT KNEE
--- NOTE | 2019-10-29 22:44 | NUR ---
PATIENT CRYING: HE IS ONLY ABLE TO SPEAK A COUPLE OF WORDS AND IT IS DIFFICULT TO UNDERSTAND HIM. COMFORTED. TV ON FOR BACKGROUND NOISE
--- NOTE | 2019-10-29 23:11 | NUR ---
RESTING IN BED WITH EYES CLOSED, EVEN AND UNLABORED BREATHING. NO PAIN BEHAVIORS IDENTIFIED
[2019-10-30] VITALS (95 sets, daily range): BP systolic 94–217; BP diastolic 44–103
[2019-10-30] MEDS ORDERED: DOCUSATE ORAL LIQUID 100 MG/10 ML UD GT PRN
[2019-10-30] MEDS: ACCU-CHEK COMFORT CURVE STRIP VI SCH ×5 (00:17→23:39)
--- NOTE | 2019-10-30 00:19 | NUR ---
MAALOX PRN GIVEN: NOTED WITH COFFEE GROUNDISH LOOKING GASTRIC CONTENTS.
--- NOTE | 2019-10-30 00:20 | NUR ---
COLACE PRN GIVEN: PATIENT WITH NO BM IN 24 HOURS AND GIVEN OPIOIDS.
[2019-10-30] MEDS: LEVALBUTEROL HCL 1.25 MG/3 ML NEB NEB SCH ×4 (00:34→19:03)
[2019-10-30] MEDS: IPRATROPIUM BROM 0.5 MG/2.5ML INH SOL NEB SCH ×4 (00:34→19:03)
[2019-10-30] MEDS: ACETYLCYSTEINE 10 %(100MG/ML) SOL 4ML NEB SCH ×4 (00:34→19:03)
[2019-10-30] MEDS: MEROPENEM 1GM IVPB 100 ML IV SCH ×2 (02:55→15:10)
[2019-10-30] MEDS: MORPHINE SULF INJ 2 MG/ML SYRINGE 1ML IV PRN ×3 (02:56→15:17)
[2019-10-30] MEDS: METOCLOPRAMIDE HCL 5MG/ml INJ 2ml VIAL IV SCH ×3 (05:15→22:00)
[2019-10-30 05:16] LABS: Hematocrit 24.7 % (41.0-53.0); Mean Corpuscular Hemoglobin 31.3 pg (28.0-32.0); Mean Corpuscular Hgb Conc. 32.5 g/dL (32.0-36.0); Mean Corpuscular Volume 96.3 fL (80.0-100.0); Platelet Count (auto) 156 10^3/uL (140-450); Red Blood Cells 2.57 10^6/uL (4.5-5.90); Red Cell Distribution Width 14.2 % (11.8-14.3); White Blood Cell 13.5 10^3/uL (4.4-10.8)
[2019-10-30] MEDS: HYDROcodone-ACET 5/325MG TAB PO PRN (05:16)
[2019-10-30 05:24] LABS: Basophils % (manual) 0 (0.0-2.0); Blast Cells 0; Eosinophils % (manual) 0 (0-7); Myelocytes % 0; Promyelocytes % 0; Reactive Lymphocytes 0
[2019-10-30 05:34] LABS: Albumin 2.6 g/dL (3.4-5.0); BUN/Creatinine Ratio 18.9; Calcium 8.4 mg/dL (8.5-10.1); Potassium 4.3 mmol/L (3.5-5.1)
--- NOTE | 2019-10-30 05:34 | NUR ---
PARTIAL BED BATH, MARIN CARE, ORAL CARE, ZAFAR CARE, AND PARTIAL LINEN CHANGE COMPLETED
[2019-10-30 05:37] LABS: Bilirubin, Total 0.6 mg/dL (0.2-1.0); Total Protein 6.1 g/dL (6.4-8.2)
[2019-10-30] MEDS: InsuLIN REG 1unit/0.01ml Soln (100units/ml) SC SCH ×4 (06:14→23:39)
[2019-10-30 06:20] LABS: Band Neutrophils % (manual) 2; Lymphocytes % (manual) 9 (10.0-50.0); Metamyelocytes % 3; Monocytes % (manual) 5 (0-12)
[2019-10-30] MEDS: PHENYLEPHRINE IV 250 ML IV SCH ×3 (06:27→23:35)
--- NOTE | 2019-10-30 07:30 | NUR ---
REPORT AND CARE ENDORSED TO ANDREINA RIVERO
[2019-10-30] MEDS: ENOXAPARIN SOD 60 MG/0.6 ML SYRINGE SC SCH (10:00)
--- NOTE | 2019-10-30 10:00 | NUR ---
PT. HAD LG. LIQUID BROWN STOOL. ZAFAR CARE DONE AND LINENS CHANGED. WILL HOLD REGLAN DOSE.
[2019-10-30] MEDS: METOPROLOL TARTRATE 25 MG TAB PO SCH ×2 (10:28→22:03)
--- NOTE | 2019-10-30 10:28 | NUR ---
PT. MOANING, FACIAL GRIMACING, HAVING PAIN IN BACK ,HX. OF CHRONIC BACK PAIN. MED. WITH MORPHINE 2MG. IVP.
--- NOTE | 2019-10-30 10:55 | NUR ---
PAIN HAS DECREASED TO A 2. PT. NO LONGER FACIAL GRIMACING OR MOANING. RESTING WITH EYES CLOSED.
[2019-10-30] MEDS: NITROGLYCERIN 50MG/250ML 250 ML IV SCH (12:37)
[2019-10-30] MEDS: AMIODARONE 450mg/250ml AE 250 ML IV SCH (13:01)
--- NOTE | 2019-10-30 13:05 | NUR ---
DR. Ian ALVARES Provider/Hospitalist at bedside. GAVE UPDATE ON PT.
--- NOTE | 2019-10-30 15:17 | NUR ---
PT. MOANING OUT LOUD, HAVING PAIN LT. KNEE STATED 9 ON A SCALE OF 0-10. MED. WITH MORPHINE 2MG. IVP.
--- NOTE | 2019-10-30 15:45 | NUR ---
PAIN HAS DECREASED TO A 3.
--- NOTE | 2019-10-30 20:30 | NUR ---
MODERATE PASTY BROWN BM X1
--- NOTE | 2019-10-30 20:30 | NUR ---
OPENING NOTE: SLEEPY BUT OPENS EYES, TRACKS, FOLLOWS COMMANDS. ORIENTED TO SELF. SPEECH INTERMITTENTLY GARBLED, ONLY SPEAKS A COUPLE OF WORDS AT TIME. NSR WITH PAC AND PVC 70-90s. SBP 140+ ON TRIDIL GTT. EVEN AND UNLABORED BREATHING. LS RHONCHI, DIMINISHED TO BASES. SpO2>95%, VERY WEAK COUGH. ABD SOFT. NORMOACTIVE BS. +FLATUS. NGT + AIR BOLUS. LBM 7/25. MARIN PATENT AND INTACT, DRAINING LIGHT EDGAR URINE. SEE SKIN AND WOUND FLOWSHEET FOR ASSESSMENT. RIGHT IJ TLC CDI, AND PATENT WITH BLOOD RETURN. REINFORCED POC. MAINTAINED PATIENT SAFETY: BED LOCKED AND IN THE LOWEST POSITION. FREQUENT VISUAL CHECKS.
--- NOTE | 2019-10-30 21:00 | NUR ---
SPOKE WITH PATIENT'S DAUGHTER: AFTER PASSWORD VERIFIED, UPDATED ON PATIENT'S STATUS. ANSWERED ALL QUESTIONS ABLE. PER DAUGHTER, PATIENT ONLY SPEAKS FEW WORDS AT BASELINE FROM ABOUT 1 MONTH AGO. SHE ALSO STATES THAT HIS LEFT KNEE PAIN HAS ALSO BEEN AROUND 1 MONTH BUT HAS NOT HAD IT ADDRESSED BY MD.
--- NOTE | 2019-10-30 21:00 | NUR ---
PLACED ON HUMIDIFIED OXYGEN VIA NC
--- NOTE | 2019-10-30 21:00 | NUR ---
CLONIDINE PRN GIVEN TO FACILITATE WEANING FROM TRIDIL GTT. BP 125/60 ON TRIDIL DRIP
[2019-10-30] MEDS: ACETAMINOPHEN 325 MG TAB PO PRN (21:02)
[2019-10-30] MEDS: cloNIDine HCL 0.1 MG TAB PO PRN (21:02)
--- NOTE | 2019-10-30 21:09 | NUR ---
PAIN - TYLENOL PRN GIVEN: REPORTS KNEE AND LOWER BACK PAIN, HOWEVER PATIENT GROGGY. TYLENOL PRN GIVEN
[2019-10-30] MEDS: Glucerna 1.2 Cal 1Liter BOTTLE GT SCH (21:12)
--- NOTE | 2019-10-30 21:13 | NUR ---
TF STARTED AT 15 ML: HOB > 30 DEGREES. MINIMAL GASTRIC RESIDUAL, + BS, AND BM.
--- NOTE | 2019-10-30 22:49 | NUR ---
BLOOD PRESSURE 94/54 - TRIDIL GTT STOPPED
[2019-10-31] VITALS (49 sets, daily range): BP systolic 101–166; BP diastolic 49–98
--- NOTE | 2019-10-31 00:11 | NUR ---
GASTRIC RESIDUAL < 10 ML - INCREASED TF RATE TO 30 ML/HR
--- NOTE | 2019-10-31 00:11 | NUR ---
PATIENT REQUESTING TONY
[2019-10-31] MEDS: AMIODARONE 450mg/250ml AE 250 ML IV SCH ×2 (01:16→14:26)
[2019-10-31] MEDS: IPRATROPIUM BROM 0.5 MG/2.5ML INH SOL NEB SCH ×4 (01:27→18:30)
[2019-10-31] MEDS: LEVALBUTEROL HCL 1.25 MG/3 ML NEB NEB SCH ×4 (01:27→18:30)
[2019-10-31] MEDS: ACETYLCYSTEINE 10 %(100MG/ML) SOL 4ML NEB SCH ×4 (01:27→18:30)
[2019-10-31] MEDS: MEROPENEM 1GM IVPB 100 ML IV SCH ×2 (03:24→15:25)
[2019-10-31 04:21] LABS: Hemoglobin 7.8 g/dL (13.5-17.5); White Blood Cell 11.7 10^3/uL (4.4-10.8)
[2019-10-31 04:22] LABS: Hematocrit 23.7 % (41.0-53.0); Mean Corpuscular Hemoglobin 31.9 pg (28.0-32.0); Mean Corpuscular Hgb Conc. 32.8 g/dL (32.0-36.0); Mean Corpuscular Volume 97.2 fL (80.0-100.0); Platelet Count (auto) 200 10^3/uL (140-450); Red Blood Cells 2.43 10^6/uL (4.5-5.90); Red Cell Distribution Width 14.5 % (11.8-14.3)
[2019-10-31 04:36] LABS: Basophils % (manual) 0 (0.0-2.0); Blast Cells 0; Promyelocytes % 0; Reactive Lymphocytes 0
[2019-10-31 04:37] LABS: Albumin 2.5 g/dL (3.4-5.0); Calcium 8.4 mg/dL (8.5-10.1); Potassium 3.6 mmol/L (3.5-5.1)
[2019-10-31 04:40] LABS: BUN/Creatinine Ratio 22.4; Bilirubin, Total 0.4 mg/dL (0.2-1.0); Total Protein 5.8 g/dL (6.4-8.2)
[2019-10-31 05:07] LABS: Band Neutrophils % (manual) 3; Eosinophils % (manual) 1 (0-7); Lymphocytes % (manual) 8 (10.0-50.0); Metamyelocytes % 1; Monocytes % (manual) 3 (0-12); Myelocytes % 1
--- NOTE | 2019-10-31 05:30 | NUR ---
PARTIAL BED BATH, ZAFAR CARE, MARIN CARE, ORAL CAR, AND FULL LINEN CHANGE COMPLETED
--- NOTE | 2019-10-31 05:30 | NUR ---
WOUND CARE: RIGHT HIP: REMOVED DRESSING. WOUND BED PINK. CLEANSED WITH SOAP AND WATER, PAT DRY. PLACED THERAHONEY GAUZE, AND COVERED WITH OPTIFOAM. SACRAL: REMOVED DRESSING. MILD ERYTHEMA. CLEANSED WITH SOAP AND WATER, PAT DRY. COVERED WITH GENTLE OPTIFOAM. LEFT HIP: BLANCHABLE ERYTHEMA. PLACED GENTLE OPTIFOAM.
[2019-10-31] MEDS: ACCU-CHEK COMFORT CURVE STRIP VI SCH ×3 (06:00→17:43)
[2019-10-31] MEDS: METOCLOPRAMIDE HCL 5MG/ml INJ 2ml VIAL IV SCH ×3 (06:00→22:00)
[2019-10-31] MEDS: InsuLIN REG 1unit/0.01ml Soln (100units/ml) SC SCH ×3 (06:00→17:47)
--- NOTE | 2019-10-31 07:30 | NUR ---
REPORT AND CARE ENDORSED TO ANDREINA RIVERO
--- NOTE | 2019-10-31 07:30 | NUR ---
REPORT AND CARE ENDORSED TO ANDREINA RIVERO
--- NOTE | 2019-10-31 07:45 | NUR ---
DR. Ian ALVARES Provider/Hospitalist at bedside. GAVE UPDATE ON PT.
[2019-10-31] MEDS: PHENYLEPHRINE IV 250 ML IV SCH ×2 (07:55→16:15)
[2019-10-31] MEDS: METOPROLOL TARTRATE 25 MG TAB PO SCH ×2 (09:43→22:23)
[2019-10-31] MEDS: ENOXAPARIN SOD 60 MG/0.6 ML SYRINGE SC SCH (09:44)
[2019-10-31] MEDS: HYDROcodone-ACET 5/325MG TAB PO PRN (09:44)
--- NOTE | 2019-10-31 09:44 | NUR ---
PT. MOANING, HAVING BACK PAIN 6 ON A SCALE OF 0-10. MED. WITH NORCO 5MG. VIA NGT.
--- NOTE | 2019-10-31 10:40 | NUR ---
PAIN HAS DECREASED TO A 1 NOW. NO LONGER MOANING.
--- NOTE | 2019-10-31 12:15 | NUR ---
PATIENT TURNED 30 DEGREES ONTO RIGHT SIDE
--- NOTE | 2019-10-31 12:22 | NUR ---
pATIENT ASKING FOR WATER AWAITING SWALLOW EVAL PATIENT AWARE.
[2019-10-31] MEDS: NITROGLYCERIN 50MG/250ML 250 ML IV SCH (13:30)
--- NOTE | 2019-10-31 14:46 | NUR ---
Nutrition Followup Note Wt: 55.1 kg Pt extubated 10/28, awake and awaiting ST eval for diet advancement per RN. pt is currently NPO. Est Energy needs: 9664-7266 kcals (30-35 kcal/kgBW) d/t pt with Stg4 CKD, Est Protein needs: 47-53 gms/day (0.8-1.9 gm/kgBW) d/t pt with DM and Stg 4 CKD. Will continue to monitor and reassess prn Labs: BUN 39 H, CREAT 1.74 H GLU 147 H CA 8.4 L, ALB 2.5 L BM: pt with 2 BM today per Rn note Skin: BS 15 mod risk, full details in lpn care manager note PES: 1) Increased nutrient needs r/t pt with no nutrition support aeb pt TF suspended pending CPAP trial 2) Altered nutrition related lab values r/t current/chronic medical condition aeb elev RFTs, low GFR, severe hypoalbuminemia Comments: Will continue to monitor NPO status, skin status, pertinent labs and weight trends. Will f/u in 2-3 days. 1) Gradually advance pt to oral CCHO 60g diet Glucerna 1 carton bid when medically feasible per ST eval. 2) Continue current plan of care
[2019-10-31] MEDS: hydrALAZINE HCL 20 MG/ML VL IV PRN (15:26)
--- NOTE | 2019-10-31 15:26 | NUR ---
SBP 160'S. MED. PT. WITH HYDRALAZINE 10 MG. IVP. MONITORING BP.
--- NOTE | 2019-10-31 15:55 | NUR ---
SBP DECREASED TO THE 140'S.
--- NOTE | 2019-10-31 18:10 | NUR ---
PT. INCONTINENT OF LG. LIQUID BROWN STOOL. ZAFAR CARE DONE AND LINENS CHANGED.
--- NOTE | 2019-10-31 19:30 | NUR ---
OPENING SHIFT RECEIVED REPORT FROM DAY SHIFT RN. ASSUMED CARE OF PATIENT. PATIENT IN BED WATCHING TV WITH NO SIGNS OR SYMPTOMS OF SOB, PAIN OR DISTRESS. CURRENTLY ON NASAL CANNULA 2L, 02 SAT - 98%. RIGHT INTERNAL JUGULAR TLC - CLEAN/DRY/INTACT. MARIN HUNG TO GRAVITY. REPOSITIONED FOR COMFORT. BED IN LOWEST POSITION, SIDE RAILS UP X2, CALL LIGHT WITHIN REACH. WILL CONTINUE TO MONITOR.
--- NOTE | 2019-10-31 21:13 | NUR ---
SPOKE WITH DAUGHTER PASSWORD VERIFIED. UPDATED DAUGHTER ON PATIENT STATUS / PLAN OF CARE. ALL QUESTIONS AND CONCERNS ANSWERED AND ADDRESSED.
[2019-11-01] VITALS (36 sets, daily range): BP systolic 121–193; BP diastolic 53–92
[2019-11-01] MEDS: LEVALBUTEROL HCL 1.25 MG/3 ML NEB NEB SCH ×4 (00:21→18:39)
[2019-11-01] MEDS: ACETYLCYSTEINE 10 %(100MG/ML) SOL 4ML NEB SCH ×4 (00:21→18:39)
[2019-11-01] MEDS: IPRATROPIUM BROM 0.5 MG/2.5ML INH SOL NEB SCH ×4 (00:21→18:39)
[2019-11-01] MEDS: PHENYLEPHRINE IV 250 ML IV SCH (00:35)
[2019-11-01] MEDS: hydrALAZINE HCL 20 MG/ML VL IV PRN ×2 (00:51→14:38)
[2019-11-01] MEDS: HYDROcodone-ACET 5/325MG TAB PO PRN ×2 (01:19→14:38)
[2019-11-01] MEDS: MEROPENEM 1GM IVPB 100 ML IV SCH ×2 (03:00→19:16)
[2019-11-01 04:32] LABS: Hematocrit 26.2 % (41.0-53.0); Hemoglobin 8.7 g/dL (13.5-17.5); Mean Corpuscular Volume 96.9 fL (80.0-100.0); Platelet Count (auto) 258 10^3/uL (140-450); Red Blood Cells 2.71 10^6/uL (4.5-5.90); Red Cell Distribution Width 14.1 % (11.8-14.3); White Blood Cell 9.7 10^3/uL (4.4-10.8)
[2019-11-01 04:51] LABS: Albumin 2.5 g/dL (3.4-5.0); Calcium 8.2 mg/dL (8.5-10.1); Potassium 3.3 mmol/L (3.5-5.1)
[2019-11-01 04:54] LABS: BUN/Creatinine Ratio 19.3; Bilirubin, Total 0.6 mg/dL (0.2-1.0)
--- NOTE | 2019-11-01 05:00 | NUR ---
PAGED DR. PINK IN REGARDS TO LABS- AWAITING CALL BACK
[2019-11-01 05:03] LABS: Basophils % (manual) 0 (0.0-2.0); Blast Cells 0; Promyelocytes % 0; Reactive Lymphocytes 0
--- NOTE | 2019-11-01 05:20 | NUR ---
MORNING CARE PATIENT REFUSED MORNING CARE AND LINEN CHANGE AT THIS TIME. STATES, "I DIDNT PEE OR POO YET" WILL CONTINUE TO MONITOR.
[2019-11-01 05:26] LABS: Band Neutrophils % (manual) 1; Eosinophils % (manual) 2 (0-7); Lymphocytes % (manual) 21 (10.0-50.0); Metamyelocytes % 2; Monocytes % (manual) 8 (0-12); Myelocytes % 2
[2019-11-01] MEDS: AMIODARONE 450mg/250ml AE 250 ML IV SCH (05:30)
[2019-11-01] MEDS: InsuLIN REG 1unit/0.01ml Soln (100units/ml) SC SCH ×4 (06:00→18:26)
[2019-11-01] MEDS: METOCLOPRAMIDE HCL 5MG/ml INJ 2ml VIAL IV SCH (06:00)
[2019-11-01] MEDS: ACCU-CHEK COMFORT CURVE STRIP VI SCH ×4 (06:02→18:23)
--- NOTE | 2019-11-01 06:50 | NUR ---
SECOND PAGED TO DR. PINK IN REGARDS TO LABS - AWAITING CALL BACK
--- NOTE | 2019-11-01 07:40 | NUR ---
END OF SHIFT REPORT GIVEN TO DAY SHIFT RN. CARE ENDORSED.
--- NOTE | 2019-11-01 07:45 | NUR ---
SPOKE WITH DR. ARAUZ UPDATED DOCTOR OF PATIENT STATUS. RECEIVED ORDERS FOR DOWNGRADE TO TELEMETRY. TORB. WILL CONTINUE TO MONITOR.
--- NOTE | 2019-11-01 08:00 | NUR ---
GLUCERNA INCREASED TO 40 MOL/HR. NO RESIDUAL NOTED WITH GASTRIC ASPIRATION.
--- NOTE | 2019-11-01 10:15 | NUR ---
Dr Chavarria visits and examines patient - no additional orders received.
--- NOTE | 2019-11-01 10:30 | NUR ---
DR CARTER VISITS - NEW ORDERS RECEIVED EARLY THIS AM
--- NOTE | 2019-11-01 11:00 | NUR ---
YUSUF ASSISTANT DISTRICT ATTORNEY VISITS AND EXAMINES PATIENT - NO NEW ORDERS RECEIVED.
--- NOTE | 2019-11-01 11:50 | NUR ---
SWALLOW EVALUATED. PATIENT ABLE TO FOLLOW ONE STEP COMMANDS. PATIENT HAS NO TEETH OR DENTURES PRESENT. ABLE TO TOLERATE PUREE DIET TEXTURE WITH THIN LIQUIDS WITH NO OVERT SIGNS OR SYMPTOMS OF ASPIRATION. NURSING NOTIFIED.
[2019-11-01] MEDS: DIGOXIN 0.125 MG TAB PO SCH (11:56)
[2019-11-01] MEDS: ENOXAPARIN SOD 60 MG/0.6 ML SYRINGE SC SCH (11:57)
[2019-11-01] MEDS: POTASSIUM CHL 20MEQ/100ML 100 ML IV SCH ×2 (11:57→15:00)
[2019-11-01] MEDS: AMIODARONE HCL 200 MG TAB PO SCH ×2 (11:57→22:18)
[2019-11-01] MEDS: METOPROLOL TARTRATE 25 MG TAB PO SCH ×2 (11:57→22:18)
--- NOTE | 2019-11-01 13:00 | NUR ---
AMIO GTT TURNED OFF AFTER PO AMIO GIVEN AT 1200.
[2019-11-01] MEDS: cloNIDine HCL 0.1 MG TAB PO PRN (20:03)
--- NOTE | 2019-11-01 22:30 | NUR ---
PM CARE PERFORMED PM CARE WITH CHG WIPES AND WASH CLOTHS TO THE FACE. PARTIAL LINEN CHANGE AND GOWN CHANGED. REPOSITIONED FOR COMFORT. SKIN REASSESSED AT THIS TIME. BED IN LOWEST POSITION, SIDE RAILS UP X2. WILL CONTINUE TO MONITOR.
[2019-11-02] VITALS (15 sets, daily range): BP systolic 114–166; BP diastolic 54–88
[2019-11-02] MEDS: IPRATROPIUM BROM 0.5 MG/2.5ML INH SOL NEB SCH ×4 (00:41→18:59)
[2019-11-02] MEDS: ACETYLCYSTEINE 10 %(100MG/ML) SOL 4ML NEB SCH ×4 (00:41→19:00)
[2019-11-02] MEDS: LEVALBUTEROL HCL 1.25 MG/3 ML NEB NEB SCH ×4 (00:41→19:00)
[2019-11-02] MEDS: MEROPENEM 1GM IVPB 100 ML IV SCH ×2 (03:00→14:16)
[2019-11-02 04:24] LABS: Hematocrit 26.4 % (41.0-53.0); Hemoglobin 8.5 g/dL (13.5-17.5); Mean Corpuscular Hemoglobin 31.3 pg (28.0-32.0); Mean Corpuscular Hgb Conc. 32.1 g/dL (32.0-36.0); Mean Corpuscular Volume 97.6 fL (80.0-100.0); Platelet Count (auto) 286 10^3/uL (140-450); Red Blood Cells 2.71 10^6/uL (4.5-5.90); White Blood Cell 8.8 10^3/uL (4.4-10.8)
[2019-11-02 04:42] LABS: Albumin 2.5 g/dL (3.4-5.0); Calcium 8.2 mg/dL (8.5-10.1); Potassium 3.8 mmol/L (3.5-5.1)
[2019-11-02] MEDS: hydrALAZINE HCL 20 MG/ML VL IV PRN ×2 (04:44→18:28)
[2019-11-02 04:45] LABS: BUN/Creatinine Ratio 17.9; Bilirubin, Total 0.4 mg/dL (0.2-1.0); Total Protein 6.1 g/dL (6.4-8.2)
[2019-11-02 04:54] LABS: Basophils % (manual) 0 (0.0-2.0); Blast Cells 0; Metamyelocytes % 0; Promyelocytes % 0; Reactive Lymphocytes 0
[2019-11-02 05:17] LABS: Band Neutrophils % (manual) 1; Eosinophils % (manual) 2 (0-7); Lymphocytes % (manual) 17 (10.0-50.0); Monocytes % (manual) 4 (0-12); Myelocytes % 4
[2019-11-02] MEDS: InsuLIN REG 1unit/0.01ml Soln (100units/ml) SC SCH ×5 (06:00→23:01)
[2019-11-02] MEDS: ACCU-CHEK COMFORT CURVE STRIP VI SCH ×5 (06:00→22:40)
[2019-11-02] MEDS: HYDROcodone-ACET 5/325MG TAB PO PRN (06:00)
--- NOTE | 2019-11-02 07:20 | NUR ---
END OF SHIFT REPORT GIVEN TO DAY SHIFT RN. CARE ENDORSED.
--- NOTE | 2019-11-02 08:30 | NUR ---
P.T. exercising patient at bedside.
--- NOTE | 2019-11-02 09:30 | NUR ---
Janeth UNIT TENDER visits and examines patient - order received.
[2019-11-02] MEDS: AMIODARONE HCL 200 MG TAB PO SCH ×2 (09:40→22:35)
[2019-11-02] MEDS: APIXABAN 5 MG TAB PO SCH ×2 (09:40→22:34)
[2019-11-02] MEDS: METOPROLOL TARTRATE 25 MG TAB PO SCH ×2 (09:40→22:34)
--- NOTE | 2019-11-02 09:45 | NUR ---
Dr Chavarria visits and examines patient.
--- NOTE | 2019-11-02 10:03 | NUR ---
ASSESSED PT FOR PRN MED NEB TX, PT ON 3L NC WITH SPO2 95%, HR 72 WITH CLEAR BS. NO DISTRESS NOTED.
--- NOTE | 2019-11-02 12:23 | NUR ---
To CT per bed for Head CT.
--- NOTE | 2019-11-02 12:23 | NUR ---
Report called to Aishwarya HDZ
--- NOTE | 2019-11-02 12:45 | NUR ---
Patient transported to Rm. 222B per bed on Tele monitor and portable O2 at 2L per NC with belongings, accompanied per RN.
--- NOTE | 2019-11-02 13:05 | NUR ---
ICU patient trans to floor SBAR received from ANDREINA Worrell . JAYLEN COOK transfered to 222B via [facility] on operating manager and portable 02. All patient medications and personal belongings transferred with patient to receiving floor. Patient care transfered to Aishwarya Frausto RN.
--- NOTE | 2019-11-02 14:02 | NUR ---
Nutrition Followup Note Wt: 55.4 kg Pt extubated 10/28, now with a Pureed diet with no PO intake yet recorded. Per records, pt is feeling better. Will continue to monitor PO status, skin status, pertinent labs and weight trends. Will f/u in 3-5 days. Est Energy needs: 4923-2829 kcals (30-35 kcal/kgBW) d/t pt with Stg4 CKD, Est Protein needs: 47-53 gms/day (0.8-1.9 gm/kgBW) d/t pt with DM and Stg 4 CKD. Will continue to monitor and reassess prn Labs: GLU 135 H CA 8.2 L, ALB 2.5 L BM: Pt with 1 BM today per Rn note Skin: BS 11 high risk, full details in day care assistant note PES: 1) Increased nutrient needs r/t pt with no nutrition support aeb pt TF suspended pending CPAP trial 2) Altered nutrition related lab values r/t current/chronic medical condition aeb elev RFTs, low GFR, severe hypoalbuminemia Comments: Will continue to monitor NPO status, skin status, pertinent labs and weight trends. Will f/u in 3-5 days. 1) Gradually advance pt to oral CCHO 60g diet Glucerna 1 carton bid when medically feasible per ST eval. (Partially Resolved) 2) Continue current plan of care
--- NOTE | 2019-11-02 14:11 | NUR ---
WOUND CARE NOTE: Wound care in to see patient for reevaluation of wounds. Patient continue resting on air mattress in Rm. 22B. Patient is awake, alert and able to verbalize needs. Patient is in no stated pain at this time and he appears to be in no pain using Og Oden Faces Pain Scale. He's max assist in turning and repositioning and his Chance score is 11. Skin assessment done with the assistance of patient's nurse, ANDREINA Lewis. Patient's Rt forearm dry scabbed wound remain the same, clean and dry,left open to air. L forearm ecchymosis remain intact and fading. Patient's Rt hip wound looks improving. Wound measuring 4x4.5cm, red with yellow slough, arabella wound is pink, no drainage/odor noted. Cleansed Rt hip wound with wound cleanser,patted dry with gauze,applied Thera honey and covered with Opti foam gentle dressing. Patient's sacral scar tissue remain intact, clean and dry. Patient passed small amount of soft stool. Arabella care given,applied Barrier cream as preventative. Covered upper sacrum with protective Opti foam sacral dressing. L dorsal foot scar tissue remain intact, pink and dry, left open to air. New photograph of wounds/skin issue are taken for reference. Patient tolerated well, repositioned for comfort facing his Lt side,redistributed pressure points with pillows. ANDREINA lewis at bedside. RECOMMENDATION: Continuation of all wound care orders prescribed by MD, continue with skin/wound plan of care, continue monitoring by wound care while patient is hospitalized. Addendum: 11/02/19 at 1813 by Lisa Sarmiento RN Amended: Links added.
--- NOTE | 2019-11-02 14:16 | NUR ---
REPOSITION PATIENT REPOSITIONED TO LEFT SIDE. PATIENT TOLERATED WELL. WILL CONTINUE TO MONITOR
--- NOTE | 2019-11-02 15:20 | NUR ---
REPOSITION PATIENT REPOSITIONED SUPINE. PATIENT TOLERATED WELL. WILL CONTINUE TO MONITOR
--- NOTE | 2019-11-02 17:10 | NUR ---
REPOSITION PATIENT REPOSITIONED TO LEFT SIDE. PATIENT TOLERATED WELL. WILL CONTINUE TO MONITOR
--- NOTE | 2019-11-02 17:13 | NUR ---
LAB UA SENT TO LAB PER MD ORDERS
[2019-11-02 17:51] LABS: Protein, Urine 63.3 mg/dL (0.0-11.9)
[2019-11-03] MEDS: LEVALBUTEROL HCL 1.25 MG/3 ML NEB NEB SCH ×4 (00:43→19:46)
[2019-11-03] MEDS: ACETYLCYSTEINE 10 %(100MG/ML) SOL 4ML NEB SCH ×4 (00:43→19:46)
[2019-11-03] MEDS: IPRATROPIUM BROM 0.5 MG/2.5ML INH SOL NEB SCH ×4 (00:43→19:46)
[2019-11-03 02:13] VITALS: BP 127/57
[2019-11-03] MEDS: MEROPENEM 1GM IVPB 100 ML IV SCH ×2 (03:07→14:19)
[2019-11-03 05:00] VITALS: BP 144/70
[2019-11-03] MEDS: InsuLIN REG 1unit/0.01ml Soln (100units/ml) SC SCH ×4 (06:00→23:58)
[2019-11-03] MEDS: ACCU-CHEK COMFORT CURVE STRIP VI SCH ×4 (06:13→23:58)
[2019-11-03 06:35] LABS: Hemoglobin 8.3 g/dL (13.5-17.5); Mean Corpuscular Hemoglobin 32.2 pg (28.0-32.0); Mean Corpuscular Hgb Conc. 33.1 g/dL (32.0-36.0); Mean Corpuscular Volume 97.3 fL (80.0-100.0); Platelet Count (auto) 319 10^3/uL (140-450); Red Blood Cells 2.57 10^6/uL (4.5-5.90); Red Cell Distribution Width 14.8 % (11.8-14.3); White Blood Cell 10.1 10^3/uL (4.4-10.8)
[2019-11-03 06:45] LABS: Basophils % (manual) 0 (0.0-2.0); Blast Cells 0; Promyelocytes % 0; Reactive Lymphocytes 0
[2019-11-03 06:51] LABS: Calcium 8.3 mg/dL (8.5-10.1); Potassium 3.9 mmol/L (3.5-5.1)
[2019-11-03 06:57] LABS: Albumin 2.4 g/dL (3.4-5.0); Bilirubin, Total 0.5 mg/dL (0.2-1.0); Total Protein 6.1 g/dL (6.4-8.2)
[2019-11-03 07:17] LABS: Band Neutrophils % (manual) 2; Eosinophils % (manual) 4 (0-7); Lymphocytes % (manual) 10 (10.0-50.0); Metamyelocytes % 1; Monocytes % (manual) 7 (0-12); Myelocytes % 2
--- NOTE | 2019-11-03 08:00 | NUR ---
Opening Shift Note Assumed care of patient, asleep, even unlabored respirations. No S/S of distress/SOB or pain. Bed in lowest/locked position, bed rails up x2, call light within reach. Will continue to monitor for changes Q1hr and PRN.
[2019-11-03 09:00] VITALS: BP 155/76
[2019-11-03] MEDS: APIXABAN 5 MG TAB PO SCH ×2 (09:04→21:16)
[2019-11-03] MEDS: AMIODARONE HCL 200 MG TAB PO SCH ×2 (09:04→21:16)
[2019-11-03] MEDS: DIGOXIN 0.125 MG TAB PO SCH (09:05)
[2019-11-03] MEDS: METOPROLOL TARTRATE 25 MG TAB PO SCH ×2 (09:05→21:17)
[2019-11-03] MEDS: HYDROcodone-ACET 5/325MG TAB PO PRN (09:11)
--- NOTE | 2019-11-03 10:33 | NUR ---
MD ROUNDS DR ARAUZ AT BEDSIDE
--- NOTE | 2019-11-03 11:30 | NUR ---
NG TUBE NG TUBE D/C'ED PER MD REQUEST. PATIENT TOLERATED WELL
[2019-11-03 13:00] VITALS: BP 128/90
--- NOTE | 2019-11-03 13:32 | NUR ---
BED BATH/WOUND CARE FULL BED BATH PERFORMED, LINEN CHANGE, WOUND CARE PERFORMED PER MD ORDERS. PATIENT REPOSITIONED TO LEFT SIDE. PATIENT TOLERATED WELL
[2019-11-03 17:00] VITALS: BP 150/68
--- NOTE | 2019-11-03 17:00 | NUR ---
assessment Patient is a 74 year old male. Per patients daughter Jeanette prior to admission patient lived home with his and grown children. Per Jeanette patient has a [employer] caregiver 3 hours per day and family helps the rest of the time. Patients PCP is Dr De La Cruz at the [facility]. Patient is on service with [employer]. Patient will need a resumption order on discharge. Patient has a fww, wheelchair, scooter, hospital bed and afshin lift for home use. I have referred patient to the [place] aid and assist program. Gregor from the [place] aid and assist program will call family to start the process. Per Jeanette patient has an advanced directive and POA. Patient and Jeanette are the POA. Patient may need SNF on discharge. I informed Jeanette I will continue to monitor and follow up as appropriate. Jeanette verbalized understanding. Addendum: 11/03/19 at 1705 by Crista WALSH Amended: Links added.
--- NOTE | 2019-11-03 17:05 | NUR ---
re-assessment Patient cannot go to SNF he has no payer source. Medicare part A only. Addendum: 11/03/19 at 1706 by Crista WALSH Amended: Links added.
--- NOTE | 2019-11-03 19:50 | NUR ---
RT NOTE PT WAS SEEN BY RT FOR CPT AND HHN TX. PT TOLERATES BOTH WELL. NO ADVERSE REACTION NOTED. CONT ORDERED Addendum: 11/03/19 at 2008 by Rocío Tate RT Amended: Links added.
[2019-11-03 22:00] VITALS: BP 160/70
[2019-11-04] MEDS: IPRATROPIUM BROM 0.5 MG/2.5ML INH SOL NEB SCH ×4 (00:35→19:33)
[2019-11-04] MEDS: LEVALBUTEROL HCL 1.25 MG/3 ML NEB NEB SCH ×4 (00:35→19:33)
[2019-11-04] MEDS: ACETYLCYSTEINE 10 %(100MG/ML) SOL 4ML NEB SCH ×4 (00:35→19:33)
--- NOTE | 2019-11-04 00:37 | NUR ---
RT NOTE PT WAS SEEN BY RT FOR HHN AND CPT TX. PT TOLERATES HHN WELL VIA MASK. NO ADVERSE REACTION NOTED. Addendum: 11/04/19 at 0037 by Rocío Tate RT Amended: Links added.
--- NOTE | 2019-11-04 02:22 | NUR ---
Took picture of outer ankle of left foot, including left heel.
[2019-11-04] MEDS: MEROPENEM 1GM IVPB 100 ML IV SCH ×3 (03:07→22:29)
[2019-11-04 05:59] VITALS: BP 160/66
[2019-11-04] MEDS: ACCU-CHEK COMFORT CURVE STRIP VI SCH ×3 (06:00→18:24)
[2019-11-04] MEDS: InsuLIN REG 1unit/0.01ml Soln (100units/ml) SC SCH ×3 (06:00→18:00)
[2019-11-04 06:37] LABS: Mean Corpuscular Hemoglobin 31.9 pg (28.0-32.0); Red Cell Distribution Width 15.1 % (11.8-14.3)
[2019-11-04 06:40] LABS: Hematocrit 24.1 % (41.0-53.0); Hemoglobin 7.9 g/dL (13.5-17.5); Mean Corpuscular Hgb Conc. 32.9 g/dL (32.0-36.0); Mean Corpuscular Volume 96.9 fL (80.0-100.0); Platelet Count (auto) 320 10^3/uL (140-450); Red Blood Cells 2.49 10^6/uL (4.5-5.90); White Blood Cell 12.3 10^3/uL (4.4-10.8)
[2019-11-04 06:51] LABS: Potassium 3.8 mmol/L (3.5-5.1)
[2019-11-04 06:52] LABS: Band Neutrophils % (manual) 0; Basophils % (manual) 0 (0.0-2.0); Blast Cells 0; Promyelocytes % 0; Reactive Lymphocytes 0
[2019-11-04 07:00] LABS: Albumin 2.3 g/dL (3.4-5.0); Bilirubin, Total 0.6 mg/dL (0.2-1.0); Calcium 8.2 mg/dL (8.5-10.1); Total Protein 5.9 g/dL (6.4-8.2)
[2019-11-04 07:27] LABS: Eosinophils % (manual) 4 (0-7); Lymphocytes % (manual) 11 (10.0-50.0); Metamyelocytes % 2; Monocytes % (manual) 8 (0-12); Myelocytes % 1
[2019-11-04 09:00] VITALS: BP 145/76
--- NOTE | 2019-11-04 10:20 | NUR ---
HYGIENE CARE COMPLETED. OPTIFOAM TO SACRAL WOUND REPLACED. MARIN CATHETER CARE COMPLETED. BED LOCKED AND IN LOWEST POSITION, CALL LIGHT WITHIN REACH.
--- NOTE | 2019-11-04 10:30 | NUR ---
STOOL SPECIMEN COLLECTED, SENT TO LAB.
--- NOTE | 2019-11-04 10:30 | NUR ---
Respiratory note: RA ABG NOT DONE AT THIS TIME. PT WAS TAKEN OF O2 FOR 45 MINUTES AND POX MAINTAIN >95%. RN NOTIFY.
[2019-11-04] MEDS: METOPROLOL TARTRATE 25 MG TAB PO SCH ×2 (10:33→22:30)
[2019-11-04] MEDS: AMIODARONE HCL 200 MG TAB PO SCH ×2 (10:34→22:30)
[2019-11-04] MEDS: APIXABAN 5 MG TAB PO SCH ×2 (10:34→22:30)
--- NOTE | 2019-11-04 11:22 | NUR ---
WOUND CARE NOTE: IN TO SEE PATIENT AT THIS TIME D/T NEW WOUND CONCERN TO LEFT HEEL/ANKLE. PATIENT WAS NOTED BY BEDSIDE NURSE TO HAVE SKIN INTEGRITY ISSUES TO LEFT FOOT, WOUND PHOTO TAKEN AT TIME OF ASSESSMENT BY BEDSIDE NURSE FOR REFERENCE. PATIENT IS NOTED TO HAVE WHAT APPEARS TO BE A FRICTION ERYTHEMA TO THE LEFT LATERAL HEEL, AND ANKLE. SKIN IS INTACT BRIGHT/DARK RED. SKIN IS BLANCHABLE. REED FOAM BOOTS APPLIED TO OFFLOAD PRESSURE AND PREVENT FRICTION. NO DRESSING NEEDED. RECOMMEND: REED FOAM BOOT, CONTINUATION WITH ALL WOUND CARE ORDERS PREVIOUSLY PRESCRIBED BY MD. WOUND CARE TEAM WILL CONTINUE TO MONITOR. Addendum: 11/04/19 at 1710 by Mayra Kirkland RN Amended: Links added.
[2019-11-04 12:54] VITALS: BP 118/82
--- NOTE | 2019-11-04 16:30 | NUR ---
TLC DC'D PER ORDER. STERILE TECHNIQUE USED. PT TOLERATED PROCEDURE WELL. TEGADERM DRESSING IN PLACE. NO BLEEDING. CALL LIGHT WITHIN REACH.
[2019-11-04 17:09] VITALS: BP 173/75
--- NOTE | 2019-11-04 19:25 | NUR ---
OPENING NOTE- NOC SHIFT PATIENT IS ALERT TO SELF. PATIENT IS IN BED, BED IS LOCKED AT LOWEST POSITION, BED RAILS UP X2 AND HEAD OF BED IS UP >30 DEGREES FOR SAFETY PRECAUTIONS. WILL CONTINUE TO MONITOR Q1H AND PRN.
--- NOTE | 2019-11-04 19:36 | NUR ---
RT NOTE PT WAS SEEN BY RT FOR HHN TX. PT TOLERATES WELL VIA MASK. NO ADVERSE REACTION NOTED. CPT DONE WITH MANUAL PERCUSSION CUP AND TOLERATED WELL. CONT ORDERED Addendum: 11/04/19 at 1937 by Rocío Tate RT Amended: Links added.
--- NOTE | 2019-11-04 20:00 | NUR ---
BED BATH PROVIDED WITH HELP OF NURSE POPULATION GENETICIST. PATIENT TOLERATED WELL. WARM BLANKET PROVIDED AFTER BATH.
[2019-11-04 22:00] VITALS: BP 117/83
--- NOTE | 2019-11-04 22:31 | NUR ---
ADRIENNE SWAB COLLECTED WALKED TO LAB BY BIODIESEL PLANT SUPERINTENDENT
--- NOTE | 2019-11-04 22:32 | NUR ---
WOUND PHOTOS WOUND PHOTOS TAKEN TO LEFT UPPER BACK AND RIGHT WRIST. FORMS FILLED OUT AND FILED IN WOUND FOLDER.
--- NOTE | 2019-11-04 22:34 | NUR ---
IV insertion IV access obtained, via clean sterile technique by inserting 22 gauge catheter at RIGHT FOREARM after 1 attempt(s). IV secured properly. No trauma to site. Patient tolerated well.
--- NOTE | 2019-11-05 00:03 | NUR ---
RT NOTE PT WAS SEEN BY RT FOR HHN TX AND CPT. PT TOLERATES BOTH WELL. CONT ORDERED Addendum: 11/05/19 at 0047 by Rocío Tate RT Amended: Links added.
[2019-11-05] MEDS: ACCU-CHEK COMFORT CURVE STRIP VI SCH ×3 (01:13→13:08)
[2019-11-05 05:00] VITALS: BP 161/66
[2019-11-05] MEDS: InsuLIN REG 1unit/0.01ml Soln (100units/ml) SC SCH ×3 (06:00→12:00)
[2019-11-05] MEDS: MEROPENEM 1GM IVPB 100 ML IV SCH ×2 (06:30→13:45)
[2019-11-05] MEDS: LEVALBUTEROL HCL 1.25 MG/3 ML NEB NEB SCH ×3 (06:30→13:00)
[2019-11-05] MEDS: ACETYLCYSTEINE 10 %(100MG/ML) SOL 4ML NEB SCH ×3 (06:30→13:00)
[2019-11-05] MEDS: IPRATROPIUM BROM 0.5 MG/2.5ML INH SOL NEB SCH ×3 (06:30→13:00)
--- NOTE | 2019-11-05 07:06 | NUR ---
CLOSING NOTE- NOC SHIFT ENDORSED PATIENT CARE TO DAY SHIFT NURSE ÁNGEL HDZ. PATIENT IS COMFORTABLE IN BED. NO S/SX OF DISTRESS, SOB OR PAIN.
--- NOTE | 2019-11-05 08:00 | NUR ---
PT AWAKE, ALERT, ORIENTED TO PERSON, , DATE. PT ON 2LNC TOLERATING WELL. Z-FLEX BOOTS TO BILATERAL HEELS. MARIN CATHETER CARE COMPLETED. PT MADE COMFORTABLE IN BED, PT ON TURN Q2H SCHEDULE. BED LOCKED AND IN LOWEST POSITION, CALL LIGHT WITHIN REACH. WILL CONTINUE TO MONITOR.
[2019-11-05] MEDS: METOPROLOL TARTRATE 25 MG TAB PO SCH (08:31)
[2019-11-05] MEDS: APIXABAN 5 MG TAB PO SCH (08:32)
[2019-11-05] MEDS: AMIODARONE HCL 200 MG TAB PO SCH (08:32)
[2019-11-05] MEDS: DIGOXIN 0.125 MG TAB PO SCH (08:32)
[2019-11-05 09:00] VITALS: BP 171/72
--- NOTE | 2019-11-05 11:11 | NUR ---
Nutrition Followup Note Wt: 48.1 kg Pt is with a Pureed diet with a fair appetite aeb ave 68% PO intake over 3 meals per RN doc. Will continue to monitor PO status, skin status, pertinent labs and weight trends. Will f/u in 3-5 days. Est Energy needs: 5822-3641 kcals (30-35 kcal/kgBW) d/t pt with Stg4 CKD, Est Protein needs: 47-53 gms/day (0.8-1.9 gm/kgBW) d/t pt with DM and Stg 4 CKD. Will continue to monitor and reassess prn Labs: GLU 123 H, A1c 7.4 H, ALB 2.3 L BM: Pt with 2 BM on 10/31 per RN note Skin: BS 12 high risk, full details in personal care assistant note PES: 1) Increased nutrient needs r/t pt with no nutrition support aeb pt TF suspended pending CPAP trial 2) Altered nutrition related lab values r/t current/chronic medical condition aeb elev RFTs, low GFR, severe hypoalbuminemia Comments: Will continue to monitor NPO status, skin status, pertinent labs and weight trends. Will f/u in 3-5 days. 1) Gradually advance pt to oral CCHO 60g diet Glucerna 1 carton bid when medically feasible per ST eval. (Partially Resolved) 2) Continue current plan of care
[2019-11-05] MEDS ORDERED: DIGO0.1238 PO (11:20)
[2019-11-05] MEDS ORDERED: AMIO200T4 PO (11:20)
[2019-11-05] MEDS ORDERED: APIX5TAB PO (11:20)
[2019-11-05] MEDS ORDERED: LEVO750T64 PO (11:20)
[2019-11-05] MEDS ORDERED: MET25T PO (11:20)
[2019-11-05 11:58] LABS: White Blood Cell 14.3 10^3/uL (4.4-10.8)
[2019-11-05 12:02] LABS: Hematocrit 24.9 % (41.0-53.0); Hemoglobin 7.9 g/dL (13.5-17.5); Mean Corpuscular Hemoglobin 30.9 pg (28.0-32.0); Mean Corpuscular Hgb Conc. 31.5 g/dL (32.0-36.0); Platelet Count (auto) 345 10^3/uL (140-450); Red Blood Cells 2.55 10^6/uL (4.5-5.90); Red Cell Distribution Width 15.5 % (11.8-14.3)
[2019-11-05 12:16] LABS: Band Neutrophils % (manual) 0; Basophils % (manual) 0 (0.0-2.0); Blast Cells 0; Myelocytes % 0; Promyelocytes % 0; Reactive Lymphocytes 0
--- NOTE | 2019-11-05 12:26 | NUR ---
WOUND CARE NOTE: Wound care in to see patient due to new skin integrity issue noted by bedside nurse upon assessment. Bedside nurse took photograph of patient's new skin integrity issue upon discovery for reference. Patient continue resting on air mattress in Rm. 222B. Patient is awake, alert and oriented. Patient appears to be in no pain using Og Oden Faces pain Scale. His Chance score is 12. Bedside nurse noted scar/scabbed wound to patient's L lateral back and Rt wrist, it appears that from old, dry scabbed wound that came off, area is clean and dry, left open to air. Will continue to monitor. RECOMMENDATION: Continuation of all wound care order prescribed by MD, continue with skin/wound plan of care, continue monitoring by wound care while patient is hospitalized.
[2019-11-05 12:29] LABS: Eosinophils % (manual) 1 (0-7); Lymphocytes % (manual) 19 (10.0-50.0); Metamyelocytes % 3; Monocytes % (manual) 5 (0-12)
--- NOTE | 2019-11-05 12:42 | NUR ---
D/C planning Regarding social service consult to resume home health for kennedy care, medication management and vitals. Per JULIANO II Crista patient is on service with [facility]. Faxed clinical information to [facility]. Per Kalie with [facility] they will resume service for patient within 24-48hrs upon d/c day.
[2019-11-05 13:00] VITALS: BP 114/41
--- NOTE | 2019-11-05 13:30 | NUR ---
PER DR. ARAUZ- DC MARIN CATHETER, IF PT VOIDS POST REMOVAL LEAVE OFF. IF NO VOID- REPLACE MARIN CATHETER.
[2019-11-05 13:46] VITALS: BP 171/72
--- NOTE | 2019-11-05 13:50 | NUR ---
MARIN CATHETER DC,D CATHETER INTACT. PT TOLERATED PROCEDURE WELL. 500ml IN COLLECTING BAG. IV CATHETER TO RFA#22 DISLODGED, CATHETER APPEARED INTACT, NO ACTIVE BLEEDING TO SITE. IV INSERTION TO RIGHT WRIST #20, FLUSHING WELL, NO COMPLICATIONS. IV ABX RESUMED PER ORDER. CALL LIGHT WITHIN REACH. WILL CONTINUE TO MONITOR.
--- NOTE | 2019-11-05 14:00 | NUR ---
D/C planning Faxed updated order to [facility].
--- NOTE | 2019-11-05 16:00 | NUR ---
MARIN CATHETER INSERTION. STERILE TECHNIQUE USED. PT TOLERATED PROCEDURE WELL. STAT LOCK IN PLACE. DC WOUND PICTURES TAKEN. PT'S DAUGHTER (HERMAN) MADE AWARE OF DC.
--- NOTE | 2019-11-05 17:30 | NUR ---
DISCHARGE INSTRUCTIONS PROVIDED TO PT'S DAUGHTER AND . BOTH VERBALIZED UNDERSTANDING FOR PRESCRIPTION ORDER AND FOLLOW UP APPOINTMENTS. CONTINUATION OF HOME MEDS AND NEW PRESCRIPTIONS REVIEWED. MARIN CATHETER CARE EDUCATION PROVIDED, BOTH MEMBERS VERBALIZED UNDERSTANDING. EDUCATIONAL MATERIAL PROVIDED, ALL QUESTIONS AND CONCERNS ADDRESSED. TELE BOX REMOVED AND RETURNED TO TELE DEPT. IV CATHETER DC'D CATHETER INTACT, NO PHLEBITIS. PT SAFELY ESCORTED OUT OF UNIT VIA WHEELCHAIR.
== END 2019-11-05 17:30 | disposition home health service (06) | DRG 870 ==
LOC: EDBD 16:55 → ER 16:55 → OVERFLOW 16:56 → CATH ICU 10-25 21:10 → TELE-CENTR 11-02 12:57
PROVIDERS: ADMIT Hospitalist; ATTEND Internal Medicine
PROC: 02HV33Z Insertion of Infusion Device into Superior Vena Cava, Percutaneous Approach (ICD-10-PCS; principal; 2019-10-24)
PROC: 5A1955Z Respiratory Ventilation, Greater than 96 Consecutive Hours (ICD-10-PCS; 2019-10-25)
PROC: 0BH17EZ Insertion of Endotracheal Airway into Trachea, Via Natural or Artificial Opening (ICD-10-PCS; 2019-10-25)
DX: A41.9 Sepsis, unspecified organism (principal); J15.1 Pneumonia due to Pseudomonas; N17.0 Acute kidney failure with tubular necrosis; R65.21 Severe sepsis with septic shock; I21.A1 Myocardial infarction type 2; E43 Unspecified severe protein-calorie malnutrition; J96.00 Acute respiratory failure, unspecified whether with hypoxia or hypercapnia; G93.41 Metabolic encephalopathy; I50.33 Acute on chronic diastolic (congestive) heart failure; K56.7 Ileus, unspecified; G81.10 Spastic hemiplegia affecting unspecified side; E87.2 Acidosis; I16.1 Hypertensive emergency; N39.0 Urinary tract infection, site not specified; E87.4 Mixed disorder of acid-base balance; I13.0 Hypertensive heart and chronic kidney disease with heart failure and stage 1 through stage 4 chronic kidney disease, or unspecified chronic kidney disease; Z99.11 Dependence on respirator [ventilator] status; E87.5 Hyperkalemia; I48.91 Unspecified atrial fibrillation; I71.4 Abdominal aortic aneurysm, without rupture; E78.5 Hyperlipidemia, unspecified; E83.39 Other disorders of phosphorus metabolism; E87.6 Hypokalemia; B96.1 Klebsiella pneumoniae [K. pneumoniae] as the cause of diseases classified elsewhere; B96.89 Other specified bacterial agents as the cause of diseases classified elsewhere; D64.9 Anemia, unspecified; E11.22 Type 2 diabetes mellitus with diabetic chronic kidney disease; E11.51 Type 2 diabetes mellitus with diabetic peripheral angiopathy without gangrene; I70.202 Unspecified atherosclerosis of native arteries of extremities, left leg; I25.10 Atherosclerotic heart disease of native coronary artery without angina pectoris; N18.9 Chronic kidney disease, unspecified; Z20.828 Contact with and (suspected) exposure to other viral communicable diseases; Z86.73 Personal history of transient ischemic attack (TIA), and cerebral infarction without residual deficits; Z79.01 Long term (current) use of anticoagulants; Z86.79 Personal history of other diseases of the circulatory system; Z79.899 Other long term (current) drug therapy; Z68.20 Body mass index [BMI] 20.0-20.9, adult
CPT/HCPCS: 31500; 36415; 36600; 51702; 70450; 71045; 74176; 76775; 80048; 80053; 80061; 80162; 81001; 82306; 82570; 82728; 82805; 82962; 83036; 83615; 83735; 83880; 83970; 84100; 84132; 84156; 84300; 84484; 85007; 85025; 85027; 85610; 85730; 86141; 87040; 87045; 87070; 87077; 87081; 87086; 87088; 87186; 87205; 87427; 87804; 92610; 93005; 94002; 94003; 94640; 94667; 94668; 96365; 96366; 96367; 96372; 96375; 97163; 97530; G0378; J0282; J0330; J0610; J0696; J1100; J1815; J2001; J2185; J2405; J2704; J3480; J3490; J7042; J7060; P9047

== ENCOUNTER 2019-11-07 19:49 | Emergency (ER) | payer MEDICARE, OTHER ==
[~2019-11-07] VITALS: Ht 170.2 cm; Wt 72.6 kg
[~2019-11-07 19:49] MED LIST changes: +APIX5TAB PO; +CLOP75TA41 PO; +DIGO0.1238 PO; +LEVO750T64 PO; +MET25T PO; +OMEP20TA PO; +PROC10TA2 PO
[2019-11-07] MEDS ORDERED: EPINEPHrine HCL 1 MG/10 ML SYRG IV ONE (19:50)
[2019-11-07] MEDS ORDERED: SODIUM BICARBONATE 8.4% INJ 50ML SYRINGE IV ONE (19:50)
[2019-11-07] MEDS ORDERED: AMIODARONE HCL (50 MG/ ML) 3 ML VIAL IV ONE (19:50)
[2019-11-07] MEDS ORDERED: SUCCINYLCHOLINE CHLORIDE 20 MG/ML 10ML VIAL IV ONE ×2 (20:08→20:30)
[2019-11-07] MEDS ORDERED: ETOMIDATE (2MG/ML) 20ML VIAL IV ONE ×2 (20:08→20:30)
[2019-11-07] MEDS ORDERED: MIDAZOLAM DRIP 50 mg/50mL 50 ML IV ONE (20:12)
[2019-11-07 20:36] VITALS: BP 50/30
[2019-11-07] MEDS ORDERED: SODIUM BICARBONATE 8.4% INJ 50ML SYRINGE ONE (20:36)
[2019-11-07] MEDS ORDERED: MIDAZOLAM DRIP 50 mg/50mL 50 ML IV SCH (20:36)
[2019-11-07] MEDS ORDERED: NOREPINEPHRINE 8 MG/250ML KIT 250 ML IV SCH (20:41)
[2019-11-07] MEDS ORDERED: NOREPINEPHRINE 8 MG/250ML KIT 250 ML IV ONE (20:47)
[2019-11-07] MEDS ORDERED: DOPamine 1600MCG/ML D5W 250 ML IV SCH (20:59)
[2019-11-07 21:05] LABS: Mean Corpuscular Hemoglobin 31.3 pg (28.0-32.0)
[2019-11-07 21:08] LABS: Hematocrit 22.5 % (41.0-53.0); Mean Corpuscular Hgb Conc. 28.6 g/dL (32.0-36.0); Mean Corpuscular Volume 109.4 fL (80.0-100.0); Platelet Count (auto) 362 10^3/uL (140-450); Red Blood Cells 2.06 10^6/uL (4.5-5.90); Red Cell Distribution Width 15.7 % (11.8-14.3); White Blood Cell 19.5 10^3/uL (4.4-10.8)
[2019-11-07 21:17] LABS: Hemoglobin 6.4 g/dL (13.5-17.5)
[2019-11-07 21:19] LABS: Band Neutrophils % (manual) 0; Basophils % (manual) 0 (0.0-2.0); Blast Cells 0; Promyelocytes % 0; Reactive Lymphocytes 0
[2019-11-07 21:21] LABS: INR 2.72 (0.9-1.15); Partial Thromboplastin Time 26.4 sec (23.0-31.2)
[2019-11-07 21:32] LABS: Albumin 1.8 g/dL (3.4-5.0); Calcium 7.6 mg/dL (8.5-10.1)
[2019-11-07 21:38] LABS: Lactic Acid w/Reflex 9.4 mmol/L (0.4-2.0)
[2019-11-07 21:40] LABS: BUN/Creatinine Ratio 15.5; Bilirubin, Total 0.6 mg/dL (0.2-1.0); Total Protein 5.6 g/dL (6.4-8.2)
[2019-11-07 21:44] LABS: Potassium 6.1 mmol/L (3.5-5.1)
[2019-11-07 22:13] LABS: Eosinophils % (manual) 2 (0-7); Lymphocytes % (manual) 23 (10.0-50.0); Metamyelocytes % 1; Monocytes % (manual) 4 (0-12); Myelocytes % 1
== END 2019-11-07 21:02 | disposition expired ==
LOC: ER 19:49 → EDBD 19:49 → ER 21:02
DX: I46.9 Cardiac arrest, cause unspecified (principal); R41.82 Altered mental status, unspecified; A41.9 Sepsis, unspecified organism; J96.02 Acute respiratory failure with hypercapnia
CPT/HCPCS: 31500; 36415; 71045; 80053; 83605; 83880; 84484; 85007; 85027; 85610; 85730; 87040; 87070; 87205; 92950; 93005; 99291; J0171; J0282; J0330; J2250; 36600; 82805; 94002